=== PATIENT | female | born 1970 | race Caucasian/White ===

== ENCOUNTER → 2018-04-24 08:12 | Outpatient (CLI) | payer OTHER, MEDICAID, SELFPAY ==
--- NOTE | 2018-04-24 | DI.MG.S_ITS ---
BILATERAL DIGITAL SCREENING MAMMOGRAM 3D/2D WITH CAD: 04/24/2018 CLINICAL: Routine screening. Family history of breast cancer. Comparison is made to exams dated: 03/11/2017 mammogram, 03/05/2016 mammogram, and 01/24/2015 mammogram - [facility]. The tissue of both breasts is extremely dense, which lowers the sensitivity of mammography. Current study was also evaluated with a Computer Aided Detection (CAD) system. No significant masses, calcifications, or other findings are seen in either breast. There has been no significant interval change. IMPRESSION: NEGATIVE There is no mammographic evidence of malignancy. A 1 year screening mammogram is recommended. This exam was interpreted at Station ID: [id number]. NOTE: For mammograms, a report in lay terms will be sent to the patient. Approximately 15% of breast malignancies will not be visualized mammographically. In the management of a palpable breast mass, a negative mammogram must not discourage biopsy of a clinically suspicious lesion. Electronically Signed By: aTnvi prather/sandhya:04/24/2018 14:56:51 letter sent: Normal Exam ACR BI-RADS Category 1: Negative [id number]
== END ==
PROVIDERS: PCP Family Medicine; Visit Provider Family Medicine
DX: Z12.31 Encounter for screening mammogram for malignant neoplasm of breast (principal); Z80.3 Family history of malignant neoplasm of breast
CPT/HCPCS: 77063; 77067

== ENCOUNTER → 2018-08-30 18:14 | Outpatient (CLI) | payer OTHER, MEDICAID, SELFPAY ==
--- NOTE | 2018-08-30 18:16 | DI.RAD.S_ITS ---
PROCEDURE: XR SACRUM COCCYX MIN 2V INDICATIONS: SI joint pain TECHNIQUE: 3 views of the sacrum and coccyx acquired. COMPARISON: None. FINDINGS: Bones: No fractures or dislocations. No suspicious bony lesions. Unremarkable SI joints. Soft tissues: Visualized bowel gas pattern is normal. No suspicious soft tissue densities. IMPRESSION: No acute bony abnormality of the sacrum and coccyx. Unremarkable SI joints. Dictated by: Balbir Ojeda M.D. on 08/30/2018 at 18:49 Approved by: Balbir Ojeda M.D. on 08/30/2018 at 18:50
--- NOTE | 2018-08-30 18:16 | DI.RAD.S_ITS ---
PROCEDURE: XR HIP W PEL IF DONE LT MIN 4V INDICATIONS: SI joint pain TECHNIQUE: AP pelvis with lateral view(s) of the bilateral hip(s). COMPARISON: None. FINDINGS: Bones: No fractures or dislocations. Pelvic ring appears intact. No suspicious bony lesions. SI joints are unremarkable. Soft tissues: The visualized bowel gas pattern is normal. No suspicious soft tissue calcifications. IMPRESSION: Unremarkable pelvis and bilateral hips. Dictated by: Balbir Ojeda M.D. on 08/30/2018 at 18:42 Approved by: Balbir Ojeda M.D. on 08/30/2018 at 18:43
== END ==
PROVIDERS: PCP Family Medicine; Visit Provider Physician Assistant
DX: M53.3 Sacrococcygeal disorders, not elsewhere classified (principal)
CPT/HCPCS: 72220; 73522

== ENCOUNTER 2018-09-29 13:45 | Outpatient (RCR) | payer OTHER, MEDICAID, SELFPAY ==
--- NOTE | 2018-09-21 17:30 | PT.OIE ---
Current Diagnoses Sciatica, left side (09/20/18) Provider Visit Care Team Role Provider Type Rosaline Lewis MD Primary Care Provider Non-Staff Specialty: Medical Address: [address] [place] [address], [id number] Email: Elyssa Monte PA-C Attending Provider [employer] Mechanic Specialty: Medical Address: [address] [place] [address], [id number] Email: Physical Therapy Initial Evaluation PT-OP-A Visit Information Start: 09/20/18 11:37 Freq: Status: Active Protocol: Document 09/20/18 11:30 [facility] (Rec: 09/21/18 11:07 [facility] [email or web address]) Out-Patient Physical Therapy Visit Information Visit Information Visit Type Initial Evaluation Visit Note 48 year old female with c/o left sided sciatica symptoms and left SI pain, she is also c/o right sided knee weakness that began after the left SI symptoms Visit Start Time 11:30 Visit Stop Time 12:15 Total Visit Minutes 45 Visit Number 1 Evaluation Information Evaluation Date 09/20/18 PT-OP-B Current Condition Start: 09/20/18 11:37 Freq: Status: Active Protocol: Document 09/20/18 11:37 [facility] (Rec: 09/20/18 11:45 [facility] [id number]) Current Condition History of Current Condition Onset Date 2013 History of Current Condition 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 Pain after sitting or driving and a hour after yoga. By the afternoon it is really hurting . Sitting is better with knee out. Pain on the left referred into the gluteal region and at times down the back of the left leg. Also c /o right knee pain PT-OP-F Manual Assessment Start: 09/21/18 10:34 Freq: Status: Active Protocol: Document 09/20/18 11:30 [facility] (Rec: 09/21/18 11:07 [facility] [email or web address]) Manual Assessments Soft Tissue Assessment Soft Tissue Mobility Assessment right piriformis tightness Joint Mobility Assessment Joint Mobility Assessment Decreased right hip ER, + june test right leg longer in supine Right PSIS is higher than left Other Manual Assessments Other Manual Assessments + ASLR left inflare of the right illium PT-OP-J Posture/Palpation/Skin Start: 09/21/18 17:29 Freq: Status: Active Protocol: Document 09/20/18 17:29 [facility] (Rec: 09/21/18 17:30 [facility] [email or web address]) Palpation Assessment Location One Palpation Location pain left PSIS Palpation Findings Tenderness Palpation Details pain rated 6/10 PT-OP-K Range of Motion Start: 09/21/18 10:34 Freq: Status: Active Protocol: Document 09/20/18 11:30 [facility] (Rec: 09/21/18 11:07 [facility] [email or web address]) Lumbar Spine Range of Motion Lumbar Spine Active Testing Position Standing ROM Limitations Pain Comments Flexion is full but causes pain on the left SI joint, pt tends to keep her spine extended in the lower lumbar region at the L4-5, L5-SI region Hip Goniometric Range of Motion Hip Measured in Degrees Left External Rotation 40 Right External Rotation 20 Hip ROM Limitations Hip ROM Limitations Soft Tissue Tightness Bony Restriction Comments The right hip is restriced with hip ER and Serene tends to rock her pelvis to get the rest of her range of motion. Left is within normal limits PT-OP-Q Treatments Start: 09/21/18 10:34 Freq: Status: Active Protocol: Document 09/20/18 11:30 [facility] (Rec: 09/21/18 11:07 [facility] [email or web address]) Therapeutic Exercises Supine Exercises 1 Supine Exercise Name isometric ball squeeze Side bilateral Reps/Minutes 10 reps Prone Exercises 1 Prone Exercise Name prone hip ER without pelvic movement Side bilateral Reps/Minutes x 10 reps Comments focus on improving hip mobility on the right into hip ER Manual Therapy Treatment Soft Tissue Mobilization 1 Body Location right pirformis Mobilization Type Myofascial Release Intensity/Depth Moderate Body Position Prone Manual Techniques 2 Type right LE distraction Body Position Supine 1 Type MET right anteriorly rotation ilium and right inflare Body Position Supine Reps/Duration 5 reps x 5 seconds each MET PT-OP-T Assessment and Plan Start: 09/21/18 10:34 Freq: Status: Active Protocol: Document 09/20/18 11:30 [facility] (Rec: 09/21/18 11:07 [facility] [email or web address]) Physical Therapy Assessment Rehab Potential Rehabilitation Potential Excellent Evaluation Complexity Number of Personal Factors/Comorbidities 0 Number of Body Systems Impaired 1-2 Clinical Presentation at Evaluation Stable Impairments Impairments Functional Activities Pain ROM Soft Tissue Mobility Tone Goals Four Impairment right PSIS higher than left, right innominant inflare and anterior rotation Short Term Goal (STG) Correct SI dysfunction to normalize movement patterns and decrease symptoms of SI joint pain on the left STG Duration 4 -6 weeks Three Impairment Left SI joint pain with forward bend/lumbar flexion Amortization Schedule Clerk Goal (LTG) Serene is able to perform her forward bend without pain into the left SI joint and she is able to move through the L4-S1 segments without flattening her lumbar spine LTG Duration 6-8 weeks Two Impairment Decreased R hip ER as compared to the L Short Term Goal (STG) Improve hip ROM on the right so that Serene is not straining through the left SI joint as she attempts to rotate her right leg out STG Duration 4 weeks Custodial Goal (LTG) Serene is able to do standing tree pose without straining into the left SI joint LTG Duration 6-8 weeks One Impairment left SI pain rated 4-6/10 Short Term Goal (STG) Serene reports decreased c/o pain in the left SI joint and is no longer experiencing the sciatic symptoms down her posterior gluteal region at rest STG Duration 4 weeks Amortization Schedule Clerk Goal (LTG) Serene is able to continue her yoga and walking without pain following these activities Assessment Summary Assessment Serene presents to physical therapy today with symptoms of Left SI joint pain and sciatica to the posterior gluteal region and thigh. She also has a new onset of right sided knee weakness. 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 With examination today the Right PSIS is higher than the left, right leg is slightly longer in supine, the right piriformis is tight and guarded and Serene lacks her full hip ROM on the right. With yoga poses such as tree pose she is compensating with straining into the left SI joint for the lack of hip ER she has. She also has pain with forward bend and tends to hold her low back in extension hinging on the lower spine as she bends forward. Treatment today began with deep tissue and MFR over the fight piriformis and manual techniques to decrease innominant inflare on the right and anterior rotation. Treatment will focus on bodymechanic training in yoga poses, manual therapy techniques, and stabilization exercises for the pelvic girdle and SI joint. Physical Therapy Plan Frequency and Duration Frequency of Treatment 2x/Week Duration of Treatment 8 weeks Plan of Care Start Date 09/20/18 Plan of Care End Date 11/15/18 Therapeutic Interventions Therapeutic Interventions Home Exercise Program Joint Mobilizations Manual Therapy Neuromuscular Re-education Patient/Caregiver Education Self-Care/Home Management Soft Tissue Mobilization Therapeutic Exercises Modalities Ultrasound Next Visit Focus/Plan Next Note Type Treatment Note Next Visit Plan Recheck SI alignment next visit, work on improved hip ER on the right, stabilization exercises for the pelvic floor
--- NOTE | 2018-09-21 17:31 | PT.OPPOC ---
Current Diagnoses Sciatica, left side (09/20/18) Provider Visit Care Team Role Provider Type Rosaline Lewis MD Primary Care Provider Non-Staff Specialty: Medical Address: [address] [place] [address], [id number] Email: Elyssa Monte PA-C Attending Provider [employer] Representative Specialty: Medical Address: [address] [place] [address], [id number] Email: Plan Of Care PT-OP-T Assessment and Plan Start: 09/21/18 10:34 Freq: Status: Active Protocol: Document 09/20/18 11:30 [facility] (Rec: 09/21/18 11:07 [facility] [email or web address]) Physical Therapy Assessment Rehab Potential Rehabilitation Potential Excellent Evaluation Complexity Number of Personal Factors/Comorbidities 0 Number of Body Systems Impaired 1-2 Clinical Presentation at Evaluation Stable Impairments Impairments Functional Activities Pain ROM Soft Tissue Mobility Tone Goals Four Impairment right PSIS higher than left, right innominant inflare and anterior rotation Short Term Goal (STG) Correct SI dysfunction to normalize movement patterns and decrease symptoms of SI joint pain on the left STG Duration 4 -6 weeks Three Impairment Left SI joint pain with forward bend/lumbar flexion Detention Goal (LTG) Serene is able to perform her forward bend without pain into the left SI joint and she is able to move through the L4-S1 segments without flattening her lumbar spine LTG Duration 6-8 weeks Two Impairment Decreased R hip ER as compared to the L Short Term Goal (STG) Improve hip ROM on the right so that Serene is not straining through the left SI joint as she attempts to rotate her right leg out STG Duration 4 weeks Costume Designer Goal (LTG) Serene is able to do standing tree pose without straining into the left SI joint LTG Duration 6-8 weeks One Impairment left SI pain rated 4-6/10 Short Term Goal (STG) Serene reports decreased c/o pain in the left SI joint and is no longer experiencing the sciatic symptoms down her posterior gluteal region at rest STG Duration 4 weeks Costume Designer Goal (LTG) Serene is able to continue her yoga and walking without pain following these activities Assessment Summary Assessment Serene presents to physical therapy today with symptoms of Left SI joint pain and sciatica to the posterior gluteal region and thigh. She also has a new onset of right sided knee weakness. 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 With examination today the Right PSIS is higher than the left, right leg is slightly longer in supine, the right piriformis is tight and guarded and Serene lacks her full hip ROM on the right. With yoga poses such as tree pose she is compensating with straining into the left SI joint for the lack of hip ER she has. She also has pain with forward bend and tends to hold her low back in extension hinging on the lower spine as she bends forward. Treatment today began with deep tissue and MFR over the fight piriformis and manual techniques to decrease innominant inflare on the right and anterior rotation. Treatment will focus on body mechanics training in yoga poses, manual therapy techniques, and stabilization exercises for the pelvic girdle and SI joint. Physical Therapy Plan Frequency and Duration Frequency of Treatment 2x/Week Duration of Treatment 8 weeks Plan of Care Start Date 09/20/18 Plan of Care End Date 11/15/18 Therapeutic Interventions Therapeutic Interventions Home Exercise Program Joint Mobilizations Manual Therapy Neuromuscular Re-education Patient/Caregiver Education Self-Care/Home Management Soft Tissue Mobilization Therapeutic Exercises Modalities Ultrasound Next Visit Focus/Plan Next Note Type Treatment Note Next Visit Plan Recheck SI alignment next visit, work on improved hip ER on the right, stabilization exercises for the pelvic floor Plan of Care Dates Plan of Care Start Date 09/20/18 Plan of Care End Date 11/15/18 Please Sign and Return: I have reviewed this Plan of Care and certify that the skilled therapy services above are required to meet the patient?s needs. Physician Signature Date Printed Name and Credentials Clinical Instructor Signature Printed Name and Credentials
--- NOTE | 2018-09-29 15:05 | PT.OTN ---
Current Diagnoses Sciatica, left side (09/29/18) Physical Therapy Treatment Note PT-OP-A Visit Information Start: 09/20/18 11:37 Freq: Status: Active Protocol: Document 09/29/18 13:45 [facility] (Rec: 09/29/18 15:05 [email or web address]) Out-Patient Physical Therapy Visit Information Visit Information Visit Type Treatment Note Visit Start Time 13:45 Visit Stop Time 14:30 Total Visit Minutes 45 Visit Number 2 PT-OP-B Current Condition Start: 09/20/18 11:37 Freq: Status: Active Protocol: Document 09/20/18 11:37 [facility] (Rec: 09/20/18 11:45 [facility] [id number]) Current Condition History of Current Condition Onset Date 2013 History of Current Condition 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 Pain after sitting or driving and a hour after yoga. By the afternoon it is really hurting . Sitting is better with knee out. Pain on the left referred into the gluteal region and at times downt he back of the left leg. Also c /o right knee pain PT-OP-C Subjective Start: 09/21/18 10:34 Freq: Status: Active Protocol: Document 09/29/18 13:45 [facility] (Rec: 09/29/18 15:05 [email or web address]) OP-PT Subjective Patient Comments Patient Comments My left hip has been feeling better, but driving still aggravates it somehow. I have been doing my home exercises.' Patient Reported Progress Improving PT-OP-F Manual Assessment Start: 09/21/18 10:34 Freq: Status: Active Protocol: Document 09/20/18 11:30 [facility] (Rec: 09/21/18 11:07 [facility] [email or web address]) Manual Assessments Soft Tissue Assessment Soft Tissue Mobility Assessment right piriformis tightness Joint Mobility Assessment Joint Mobility Assessment Decreased right hip ER, + june test right leg longer in supine Right PSIS is higher than left Other Manual Assessments Other Manual Assessments + ASLR left inflare of the right illium PT-OP-J Posture/Palpation/Skin Start: 09/21/18 17:29 Freq: Status: Active Protocol: Document 09/20/18 17:29 [facility] (Rec: 09/21/18 17:30 [facility] [email or web address]) Palpation Assessment Location One Palpation Location pain left PSIS Palpation Findings Tenderness Palpation Details pain rated 6/10 PT-OP-K Range of Motion Start: 09/21/18 10:34 Freq: Status: Active Protocol: Document 09/20/18 11:30 [facility] (Rec: 09/21/18 11:07 [facility] [email or web address]) Lumbar Spine Range of Motion Lumbar Spine Active Testing Position Standing ROM Limitations Pain Comments Flexion is full but causes pain on the left SI joint, pt tends to keep her spine extended in the lower lumbar region at the L4-5, L5-SI region Hip Goniometric Range of Motion Hip Measured in Degrees Left External Rotation 40 Right External Rotation 20 Hip ROM Limitations Hip ROM Limitations Soft Tissue Tightness Bony Restriction Comments The right hip is restriced with hip ER and Serene tends to rock her pelvis to get the rest of her range of motion. Left is within normal limits PT-OP-Q Treatments Start: 09/21/18 10:34 Freq: Status: Active Protocol: Document 09/29/18 13:45 [facility] (Rec: 09/29/18 15:05 [facility] [email or web address]) Therapeutic Exercises Supine Exercises resisted L hip ER Side left Resistance PT's resistance Reps/Minutes 10 secs hold x5 single leg bridge Side bilateral Reps/Minutes 5 secs hold at top x 5 x2 Comments cues for neutral spine and gluteal engagement bridging Supine Exercise Name bridging Side bilateral Reps/Minutes 5 secs hold at top x 8 x2 Comments cues for neutral spine and gluteal engagement 1 Supine Exercise Name isometric ball squeeze Side bilateral Reps/Minutes 10 reps x 5 secs hold Standing Exercises single leg hip hinge Standing Exercise Name walking hip hinge Side bilateral Reps/Minutes 10 reps x 2 Comments stagger stance with neutral spine jeffferson curl Side bilateral Equipment Used 10lbs weighted ball Reps/Minutes 5 reps x 2 Comments cues for segmental control Other Exercises cat camel Other Exercise Name cat camel without hip movement Equipment Used yoga mat Reps/Minutes 10 reps Comments tapping to cue segmental control Manual Therapy Treatment Soft Tissue Mobilization R glute max & medius Mobilization Type Myofascial Release Intensity/Depth Moderate Body Position Prone 1 Body Location right pirformis Mobilization Type Myofascial Release Intensity/Depth Moderate Body Position Prone Manual Techniques 2 Type right LE distraction Body Position Supine PT-OP-T Assessment and Plan Start: 09/21/18 10:34 Freq: Status: Active Protocol: Document 09/29/18 13:45 (Rec: 09/29/18 15:05 [email or web address]) Physical Therapy Assessment Goals Four Impairment right PSIS higher than left, right innominant inflare and anterior rotation Short Term Goal (STG) Correct SI dysfunction to normalize movement patterns and decrease symptoms of SI joint pain on the left STG Duration 4 -6 weeks Three Impairment Left SI joint pain with forward bend/lumbar flexion Usp Goal (LTG) Serene is able to perform her forward bend without pain into the left SI joint and she is able to move through the L4-S1 segments without flattening her lumbar spine LTG Duration 6-8 weeks Two Impairment Decreased R hip ER as compared to the L Short Term Goal (STG) Improve hip ROM on the right so that Serene is not straining through the left SI joint as she attempts to rotate her right leg out STG Duration 4 weeks Usp Goal (LTG) Serene is able to do standing tree pose without straining into the left SI joint LTG Duration 6-8 weeks One Impairment left SI pain rated 4-6/10 Short Term Goal (STG) Serene reports decreased c/o pain in the left SI joint and is no longer experiencing the sciatic symptoms down her posterior gluteal region at rest STG Duration 4 weeks Director Of Business Systems Goal (LTG) Jonny is able to continue her yoga and walking without pain following these activities Assessment Summary Assessment Pt presents improved symptoms today with reduced pain at L SI during forward bending and warrior pose. She also presents improved SI alignment and LLD. Tx focused on lumbar segmental control during forward bending with corey curl exercise, stagger stance hip hinge, manual therapy on R piriformis. Pt ruddy tx very well. Physical Therapy Plan Next Visit Focus/Plan Next Note Type Treatment Note Next Visit Plan Recheck SI alignment next visit, check segmental control check hamstring, gluteal strength work on improved hip ER on the right, stabilization exercises for the pelvic floor
--- NOTE | 2019-02-13 11:58 | PT.OPDS ---
Current Diagnoses Sciatica, left side (09/29/18) Visit Care Team Role Provider Type Rosaline Lewis MD Primary Care Provider Non-Staff Specialty: Medical Address: [address] [place] [address], [id number] Email: Elyssa Monte PA-C Attending Provider Advanced Rolling Chair Pusher Specialty: Medical Address: [address] [place] [address], [id number] Email: [email or web address] Visit Number Visit Number 2 Discharge Summary PT-OP-B Current Condition Start: 09/20/18 11:37 Freq: Status: Active Protocol: Document 09/20/18 11:37 [facility] (Rec: 09/20/18 11:45 [facility] [id number] Current Condition History of Current Condition Onset Date 2013 History of Current Condition 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 Pain after sitting or driving and a hour after yoga. By the afternoon it is really hurting . Sitting is better with knee out. Pain on the left referred into the gluteal region and at times downt he back of the left leg. Also c /o right knee pain PT-OP-C Subjective Start: 09/21/18 10:34 Freq: Status: Active Protocol: Document 09/29/18 13:45 HH (Rec: 09/29/18 15:05 HH [email or web address]) OP-PT Subjective Patient Comments Patient Comments My left hip has been feeling better, but driving still aggravates it somehow. I have been doing my home exercises.' Patient Reported Progress Improving PT-OP-F Manual Assessment Start: 09/21/18 10:34 Freq: Status: Active Protocol: Document 09/20/18 11:30 [facility] (Rec: 09/21/18 11:07 [facility] [email or web address]) Manual Assessments Soft Tissue Assessment Soft Tissue Mobility Assessment right piriformis tightness Joint Mobility Assessment Joint Mobility Assessment Decreased right hip ER, + june test right leg longer in supine Right PSIS is higher than left Other Manual Assessments Other Manual Assessments + ASLR left inflare of the right illium PT-OP-J Posture/Palpation/Skin Start: 09/21/18 17:29 Freq: Status: Active Protocol: Document 09/20/18 17:29 [facility] (Rec: 09/21/18 17:30 AMH [email or web address]) Palpation Assessment Location One Palpation Location pain left PSIS Palpation Findings Tenderness Palpation Details pain rated 6/10 PT-OP-K Range of Motion Start: 09/21/18 10:34 Freq: Status: Active Protocol: Document 09/20/18 11:30 [facility] (Rec: 09/21/18 11:07 AM[facility] [email or web address]) Lumbar Spine Range of Motion Lumbar Spine Active Testing Position Standing ROM Limitations Pain Comments Flexion is full but causes pain on the left SI joint, pt tends to keep her spine extended in the lower lumbar region at the L4-5, L5-SI region Hip Goniometric Range of Motion Hip Left External Rotation 40 Right External Rotation 20 Hip ROM Limitations Hip ROM Limitations Soft Tissue Tightness,Bony Restriction Comments The right hip is restriced with hip ER and Serene tends to rock her pelvis to get the rest of her range of motion. Left is within normal limits PT-OP-T Assessment and Plan Start: 09/21/18 10:34 Freq: Status: Active Protocol: Document 02/13/19 11:56 (Rec: 02/13/19 11:57 [email or web address]) Physical Therapy Assessment Assessment Summary Assessment Call Pt via phone but she is not available. She is not longer attending PT. D/C from PT
== END 2019-02-21 16:30 | disposition home or self-care (01) ==
LOC: PHYS 13:45
PROVIDERS: PCP Family Medicine; Visit Provider Physician Assistant
DX: M54.32 Sciatica, left side (principal)
CPT/HCPCS: 97110; 97140; 97161

== ENCOUNTER 2018-10-28 13:35 | Emergency (ER) | payer OTHER, MEDICAID, SELFPAY ==
[2018-10-28 13:38] VITALS: BP 149/89; PULSE 103; RESP 18; TEMP 36.6; O2SAT 98; BMI 21.6
[2018-10-28 14:33] LABS: Add Manual Diff / Slide Review NO; Basophils Absolute Auto 0 /uL (0-100); Basophils Percent Auto 0.8 % (0-2); Eosinophils Absolute Auto 100 /uL (0-450); Hematocrit 39.8 % (36-46); Hemoglobin 13.3 g/dL (12.0-16.0); Lymphocytes Absolute Auto 2100 /uL (1100-4500); Lymphocytes Percent Auto 33.9 % (25-40); Mean Corpuscular HGB Conc 33.4 % (30-36); Mean Corpuscular Hemoglobin 29.7 PG (26-34); Monocytes Absolute Auto 300 /uL (0-900); Monocytes Percent Auto 4.5 % (3-14); Neutrophils Absolute Auto 3600 /uL (1500-7000); Neutrophils Percent Auto 58.8 % (50-75); Platelet Count 311 X10^3/uL (150-400); Red Blood Cell Count 4.48 X10^6/uL (4.0-5.2); Red Cell Distribution Width 14.2 % (11.6-14.8); White Blood Cell Count 6.1 X10^3/uL (4.5-11.0)
--- NOTE | 2018-10-28 14:40 | ED_ITS ---
HPI - Alcohol <NATHAN Moreno - Last Filed: 10/28/18 16:39> General Chief Complaint: Toxicology Problem Stated Complaint: Detox Time Seen by Provider: 10/28/18 14:20 Source: patient Mode of arrival: ambulatory Limitations: no limitations History of Present Illness HPI narrative: The patient is a 48-year-old female nonsmoker with history of alcoholism who presents requesting medications for detox. She states that she has been ?on a binge for the past 5 days. She states she has been drinking at least a 5th of hard alcohol a day, but she is not sure. She has been in and out of recovery for the past several years, with history of alcoholism. She denies any other substance abuse. She denies any history of seizures. She denies any current thoughts of hurting herself or anybody else. She denies any fevers abdominal pain nausea or vomiting. She denies any current tremors. Her last drink was today at noon and states she had about a 5th to drink today. Related Data Home Medications Medication Instructions Recorded Confirmed biotin 2,500 mcg PO #0 05/24/16 08/30/18 vitamin B complex [B 1 tab PO QDAY #0 05/24/16 08/30/18 Complex-Vitamin B12] zinc gluconate 100 mg PO #0 05/24/16 08/30/18 ginkgo biloba 120 mg PO #0 01/17/17 08/30/18 Previous Rx's Medication Instructions Recorded chlordiazepoxide HCl See Rx Instructions .ROUTE 10/28/18 .COMPLEX PRN #32 cap ondansetron 4 mg PO Q8H PRN #30 tab 10/28/18 Allergies Allergy/AdvReac Type Severity Reaction Status Date / Time No Known Drug Allergies Allergy Verified 08/30/18 19:03 Review of Systems <NATHAN Moreno - Last Filed: 10/28/18 16:39> Review of Systems GENERAL: Denies chills, fatigue, malaise, fever, sweats. HEENT: Denies sinus pain, ear pain, sore throat, difficulty swallowing, dizziness. RESPIRATORY: Denies dyspnea, cough, wheezing, hemoptysis, sputum. CARDIOVASCULAR: Denies chest pain, palpitations, orthopnea, edema, GASTROINTESTINAL: Denies nausea, vomiting, abdominal pain, diarrhea, constipation, melena. : Denies dysuria, frequency, incontinence, hematuria, urinary retention. MUSCULOSKELETAL: denies weakness, joint pain, or bony pain SKIN: Denies rash, skin lesions, or other NEUROLOGIC: Denies weakness, headache, numbness, change in speech, confusion, seizures, incoordination. PSYCHIATRIC: See HPI 12 point review of systems is negative except for those stated above PFSH <NATHAN Moreno - Last Filed: 10/28/18 16:39> Social History Smoking Status: Never smoker Social History Smoking Status: Never smoker Exam <NATHAN Moreno - Last Filed: 10/28/18 16:39> Narrative Exam Narrative: GENERAL: Thin female sitting on stretcher in no acute distress HEAD: Atraumatic. Normocephalic. No temporal or scalp tenderness. EYES: Pupils equal round and reactive. Extraocular motions intact. No scleral icterus. No injection or drainage. ENT: Nose without bleeding, purulent drainage or septal hematoma. Throat without erythema, tonsillar hypertrophy or exudate. Uvula midline. Airway patent. NECK: Trachea midline. No JVD or lymphadenopathy. Supple, nontender, no meningeal signs. CARDIOVASCULAR: Regular rate and rhythm without murmurs, gallops, or rubs. RESPIRATORY: Clear to auscultation. Breath sounds equal bilaterally. No wheezes, rales, or rhonchi. No cough. No increased respiratory effort. No accessory muscle use. GASTROINTESTINAL: Abdomen soft, non-tender, nondistended. No hepato- splenomegaly, or palpable masses. No guarding. EXTREMITIES: No clubbing, cyanosis, or edema. No joint tenderness, effusion, or edema noted. BACK: Nontender without deformity or crepitance. No flank tenderness. NEURO: AOx3. Stable gait. No tremor noted. SKIN: No rash or erythema. Initial Vital Signs Initial Vital Signs: Vital Signs Temperature 97.8 F 10/28/18 13:38 Pulse Rate 103 H 10/28/18 13:38 Respiratory Rate 18 10/28/18 13:38 Blood Pressure 149/89 H 10/28/18 13:38 Pulse Oximetry 98 07/06/19 13:38 <Anna Rivera DO - Last Filed: 10/28/18 18:54> Initial Vital Signs Initial Vital Signs: Vital Signs Temperature 97.8 F 10/28/18 13:38 Pulse Rate 103 H 10/28/18 13:38 Respiratory Rate 18 10/28/18 13:38 Blood Pressure 149/89 H 10/28/18 13:38 Pulse Oximetry 98 10/28/18 13:38 Course <NATHAN Moreno - Last Filed: 10/28/18 16:39> Orders Ordered: ED Orders 10/28/18 14:10 Urine Drug Screen, Rapid Stat 10/28/18 14:20 Acetaminophen Stat Complete Blood Count AUTO DIFF Stat Comprehensive Metabolic Panel Stat Ethanol (ETOH) Stat Salicylate Stat Thyroid Stimulating Hormone Stat Discontinued Medications Lorazepam (Ativan) 1 mg PO NOW ONE Stop: 10/28/18 15:30 Last Admin: 10/28/18 15:56 Dose: 1 mg Ondansetron HCl (Zofran Odt) 4 mg SL NOW ONE Stop: 10/28/18 15:30 Last Admin: 10/28/18 15:56 Dose: 4 mg Vital Signs - 8 hr 10/28/18 13:38 10/28/18 16:49 Temperature 97.8 F Pulse Rate 103 H 94 H Respiratory Rate 18 18 Blood Pressure 149/89 H 132/84 Pulse Oximetry 98 96 <Anna Rivera DO - Last Filed: 10/28/18 18:54> Orders Ordered: ED Orders 10/28/18 14:10 Urine Drug Screen, Rapid Stat 10/28/18 14:20 Acetaminophen Stat Complete Blood Count AUTO DIFF Stat Comprehensive Metabolic Panel Stat Ethanol (ETOH) Stat Salicylate Stat Thyroid Stimulating Hormone Stat Discontinued Medications Lorazepam (Ativan) 1 mg PO NOW ONE Stop: 10/28/18 15:30 Last Admin: 10/28/18 15:56 Dose: 1 mg Ondansetron HCl (Zofran Odt) 4 mg SL NOW ONE Stop: 10/28/18 15:30 Last Admin: 10/28/18 15:56 Dose: 4 mg Vital Signs - 8 hr 10/28/18 13:38 10/28/18 16:49 Temperature 97.8 F Pulse Rate 103 H 94 H Respiratory Rate 18 18 Blood Pressure 149/89 H 132/84 Pulse Oximetry 98 96 MDM - Alcohol <Ashley Campoverde, [employer] - Last Filed: 10/28/18 16:39> Lab Data Result diagrams: 10/28/18 14:20 10/28/18 14:20 Labs: Lab Results 10/28/18 10/28/18 10/28/18 Range/Units 14:10 14:20 14:20 WBC 6.1 (4.5-11.0) X10^3/uL RBC 4.48 (4.0-5.2) X10^6/uL Hgb 13.3 (12.0-16.0) g/dL Hct 39.8 (36-46) % MCV 89.0 (80-100) fL MCH 29.7 (26-34) PG MCHC 33.4 (30-36) % RDW 14.2 (11.6-14.8) % Plt Count 311 (150-400) X10^3/uL Neut % (Auto) 58.8 (50-75) % Lymph % (Auto) 33.9 (25-40) % [place] % (Auto) 4.5 (3-14) % Eos % (Auto) 2.0 (2-4) % Baso % (Auto) 0.8 (0-2) % Neut # (Auto) 3600 (3075-0592) /uL Lymph # (Auto) 2100 (6991-4090) /uL [place] # (Auto) 300 (0-900) /uL Eos # (Auto) 100 (0-450) /uL Baso # (Auto) 0 (0-100) /uL Sodium 139 (137-145) mmol/L Potassium 4.4 (3.4-5.1) mmol/L Chloride 99 (98-107) mmol/L Carbon Dioxide 26 (22-32) mmol/L BUN 9 (7-17) mg/dL Creatinine 0.60 (0.52-1.04) mg/dL Estimated GFR > 60.0 (>60) mL/min BUN/Creatinine Ratio 15.0 (6-22) Glucose 90 (70-100) mg/dL Calcium 9.3 (8.4-10.2) mg/dL Total Bilirubin 0.5 (0.2-1.3) mg/dL AST 59 H (14-36) IU/L ALT 32 (9-52) IU/L Alkaline Phosphatase 63 (38-126) U/L Total Protein 7.9 (6.3-8.2) g/dL Albumin 4.8 (3.5-5.0) g/dL Globulin 3.1 (1.7-4.1) g/dL Albumin/Globulin Ratio 1.5 (1.0-2.8) TSH (0.47-4.68) uIU/mL Salicylates < 1.0 (<20) mg/dL Urine Opiates Screen Negative (Negative) Ur Oxycodone Screen Negative (Negative) Urine Methadone Screen Negative (Negative) Acetaminophen < 10 L (10-30) ug/mL Ur Barbiturates Screen Negative (Negative) U Tricyclic Antidepress Negative (Negative) Ur Phencyclidine Scrn Negative (Negative) Ur Amphetamines Screen Negative (Negative) U Methamphetamines Scrn Negative (Negative) Ur MDMA Scrn (Ecstasy) Negative (Negative) U Benzodiazepines Scrn Negative (Negative) Urine Cocaine Screen Negative (Negative) U Marijuana (THC) Screen Negative (Negative) Ethyl Alcohol 253 mg/dL 10/28/18 Range/Units 14:20 WBC (4.5-11.0) X10^3/uL RBC (4.0-5.2) X10^6/uL Hgb (12.0-16.0) g/dL Hct (36-46) % MCV (80-100) fL MCH (26-34) PG MCHC (30-36) % RDW (11.6-14.8) % Plt Count (150-400) X10^3/uL Neut % (Auto) (50-75) % Lymph % (Auto) (25-40) % [place] % (Auto) (3-14) % Eos % (Auto) (2-4) % Baso % (Auto) (0-2) % Neut # (Auto) (3047-0648) /uL Lymph # (Auto) (3627-9226) /uL [place] # (Auto) (0-900) /uL Eos # (Auto) (0-450) /uL Baso # (Auto) (0-100) /uL Sodium (137-145) mmol/L Potassium (3.4-5.1) mmol/L Chloride (98-107) mmol/L Carbon Dioxide (22-32) mmol/L BUN (7-17) mg/dL Creatinine (0.52-1.04) mg/dL Estimated GFR (>60) mL/min BUN/Creatinine Ratio (6-22) Glucose (70-100) mg/dL Calcium (8.4-10.2) mg/dL Total Bilirubin (0.2-1.3) mg/dL AST (14-36) IU/L ALT (9-52) IU/L Alkaline Phosphatase (38-126) U/L Total Protein (6.3-8.2) g/dL Albumin (3.5-5.0) g/dL Globulin (1.7-4.1) g/dL Albumin/Globulin Ratio (1.0-2.8) TSH 0.99 (0.47-4.68) uIU/mL Salicylates (<20) mg/dL Urine Opiates Screen (Negative) Ur Oxycodone Screen (Negative) Urine Methadone Screen (Negative) Acetaminophen (10-30) ug/mL Ur Barbiturates Screen (Negative) U Tricyclic Antidepress (Negative) Ur Phencyclidine Scrn (Negative) Ur Amphetamines Screen (Negative) U Methamphetamines Scrn (Negative) Ur MDMA Scrn (Ecstasy) (Negative) U Benzodiazepines Scrn (Negative) Urine Cocaine Screen (Negative) U Marijuana (THC) Screen (Negative) Ethyl Alcohol mg/dL Point of Care Testing Test Results Negative Urine Dip Bedside Urine Glucose Negative Bedside Urine Bilirubin - Negative Bedside Urine Ketone - Negative Urine Specific [place] 1.015 Bedside Urine Occult Blood - Negative Bedside Urine pH 6.0 Bedside Urine Protein + 30 Bedside Urine Urobilinogen +/- 1mg Bedside Urine Nitrite - Negative Bedside Urine Leukocytes - Negative Esterase MDM Narrative Medical decision making narrative: The patient is a 48-year-old female who presents requesting medications for alcohol detox. She has detoxified from alcohol at home several times. She is a L for AA and has good support systems, including her mother is present. She denies any suicidal thoughts or ideations, homicidal thoughts or homicidal ideations. She plans on following up with primary care provider. She states she will come back to the ER if needed. She has no history of detox seizures. I discussed at length follow up with her primary care provider. She was given prescriptions of Librium as well as Zofran as needed. Mother states comfort with this process at her house, as she states she has worked with her daughter for this before. No questions or concerns upon discharge. She has been hemodynamically stable throughout her stay in the ER. <Anna Nicole, DO - Last Filed: 10/28/18 18:54> Lab Data Labs: Lab Results 10/28/18 10/28/18 10/28/18 Range/Units 14:10 14:20 14:20 WBC 6.1 (4.5-11.0) X10^3/uL RBC 4.48 (4.0-5.2) X10^6/uL Hgb 13.3 (12.0-16.0) g/dL Hct 39.8 (36-46) % MCV 89.0 (80-100) fL MCH 29.7 (26-34) PG MCHC 33.4 (30-36) % RDW 14.2 (11.6-14.8) % Plt Count 311 (150-400) X10^3/uL Neut % (Auto) 58.8 (50-75) % Lymph % (Auto) 33.9 (25-40) % [place] % (Auto) 4.5 (3-14) % Eos % (Auto) 2.0 (2-4) % Baso % (Auto) 0.8 (0-2) % Neut # (Auto) 3600 (4962-6465) /uL Lymph # (Auto) 2100 (9797-6324) /uL [place] # (Auto) 300 (0-900) /uL Eos # (Auto) 100 (0-450) /uL Baso # (Auto) 0 (0-100) /uL Sodium 139 (137-145) mmol/L Potassium 4.4 (3.4-5.1) mmol/L Chloride 99 (98-107) mmol/L Carbon Dioxide 26 (22-32) mmol/L BUN 9 (7-17) mg/dL Creatinine 0.60 (0.52-1.04) mg/dL Estimated GFR > 60.0 (>60) mL/min BUN/Creatinine Ratio 15.0 (6-22) Glucose 90 (70-100) mg/dL Calcium 9.3 (8.4-10.2) mg/dL Total Bilirubin 0.5 (0.2-1.3) mg/dL AST 59 H (14-36) IU/L ALT 32 (9-52) IU/L Alkaline Phosphatase 63 (38-126) U/L Total Protein 7.9 (6.3-8.2) g/dL Albumin 4.8 (3.5-5.0) g/dL Globulin 3.1 (1.7-4.1) g/dL Albumin/Globulin Ratio 1.5 (1.0-2.8) TSH (0.47-4.68) uIU/mL Salicylates < 1.0 (<20) mg/dL Urine Opiates Screen Negative (Negative) Ur Oxycodone Screen Negative (Negative) Urine Methadone Screen Negative (Negative) Acetaminophen < 10 L (10-30) ug/mL Ur Barbiturates Screen Negative (Negative) U Tricyclic Antidepress Negative (Negative) Ur Phencyclidine Scrn Negative (Negative) Ur Amphetamines Screen Negative (Negative) U Methamphetamines Scrn Negative (Negative) Ur MDMA Scrn (Ecstasy) Negative (Negative) U Benzodiazepines Scrn Negative (Negative) Urine Cocaine Screen Negative (Negative) U Marijuana (THC) Screen Negative (Negative) Ethyl Alcohol 253 mg/dL 10/28/18 Range/Units 14:20 WBC (4.5-11.0) X10^3/uL RBC (4.0-5.2) X10^6/uL Hgb (12.0-16.0) g/dL Hct (36-46) % MCV (80-100) fL MCH (26-34) PG MCHC (30-36) % RDW (11.6-14.8) % Plt Count (150-400) X10^3/uL Neut % (Auto) (50-75) % Lymph % (Auto) (25-40) % [place] % (Auto) (3-14) % Eos % (Auto) (2-4) % Baso % (Auto) (0-2) % Neut # (Auto) (1032-5956) /uL Lymph # (Auto) (2498-3882) /uL [place] # (Auto) (0-900) /uL Eos # (Auto) (0-450) /uL Baso # (Auto) (0-100) /uL Sodium (137-145) mmol/L Potassium (3.4-5.1) mmol/L Chloride (98-107) mmol/L Carbon Dioxide (22-32) mmol/L BUN (7-17) mg/dL Creatinine (0.52-1.04) mg/dL Estimated GFR (>60) mL/min BUN/Creatinine Ratio (6-22) Glucose (70-100) mg/dL Calcium (8.4-10.2) mg/dL Total Bilirubin (0.2-1.3) mg/dL AST (14-36) IU/L ALT (9-52) IU/L Alkaline Phosphatase (38-126) U/L Total Protein (6.3-8.2) g/dL Albumin (3.5-5.0) g/dL Globulin (1.7-4.1) g/dL Albumin/Globulin Ratio (1.0-2.8) TSH 0.99 (0.47-4.68) uIU/mL Salicylates (<20) mg/dL Urine Opiates Screen (Negative) Ur Oxycodone Screen (Negative) Urine Methadone Screen (Negative) Acetaminophen (10-30) ug/mL Ur Barbiturates Screen (Negative) U Tricyclic Antidepress (Negative) Ur Phencyclidine Scrn (Negative) Ur Amphetamines Screen (Negative) U Methamphetamines Scrn (Negative) Ur MDMA Scrn (Ecstasy) (Negative) U Benzodiazepines Scrn (Negative) Urine Cocaine Screen (Negative) U Marijuana (THC) Screen (Negative) Ethyl Alcohol mg/dL Point of Care Testing Test Results Negative Urine Dip Bedside Urine Glucose Negative Bedside Urine Bilirubin - Negative Bedside Urine Ketone - Negative Urine Specific [place] 1.015 Bedside Urine Occult Blood - Negative Bedside Urine pH 6.0 Bedside Urine Protein + 30 Bedside Urine Urobilinogen +/- 1mg Bedside Urine Nitrite - Negative Bedside Urine Leukocytes - Negative Esterase Discharge Plan Departure Patient Disposition: Home Clinical Impression: Alcohol abuse Discharge Date/Time: 10/28/18 16:50 Interventions: ED Discharge Assessment Last Done: 10/28/18 16:49 Instructions: DI for Delirium Tremens, DI for Alcohol Abuse, DI for Drug Abuse and Drug Addiction, Drug and Alcohol Withdrawal, DI for Drug or Alcohol Withdrawal Activity Restrictions/Additional Instructions: Thank you for trusting us with your care today. Please follow up with your primary care provider. I have given you to prescriptions. One is to help facilitate alcohol detox, and the 2nd is for nausea as needed. Please come back to the emergency department for any acute concerns such as seizures, confusion or wanting to hurt herself or anybody else. Please follow up with primary care provider in the next few days. Please rest and push fluids. Prescriptions: New ondansetron 4 mg tablet,disintegrating 4 mg PO Q8H PRN (Reason: nausea and vomiting) Qty: 30 RF: 0 chlordiazepoxide HCl 25 mg capsule See Rx Instructions .ROUTE .COMPLEX PRN (Reason: alcohol withdrawal) Qty: 32 RF: 0 No Action zinc gluconate 100 MG tablet 100 mg PO Qty: 0 RF: 0 vitamin B complex [B Complex-Vitamin B12] 1 EACH tablet 1 tab PO QDAY Qty: 0 RF: 0 biotin 2,500 MCG capsule 2,500 mcg PO Qty: 0 RF: 0 ginkgo biloba 120 MG tablet 120 mg PO Qty: 0 RF: 0 Referrals: Rosaline Lewis MD [Primary Care Provider] - <Anna Rivera DO - Last Filed: 10/28/18 18:54> Cosign ED Attending Roseanneature Attestation: I was immediately available in the department for consultation. Documentation has been reviewed. I agree with assessment and plan.
[2018-10-28 14:45] LABS: Acetaminophen < 10 ug/mL (10-30); Alanine Aminotransferase 32 IU/L (9-52); Albumin 4.8 g/dL (3.5-5.0); Albumin Globulin Ratio 1.5 (1.0-2.8); Alkaline Phosphatase 63 U/L (38-126); Aspartate Aminotransferase 59 IU/L (14-36); Bilirubin Total 0.5 mg/dL (0.2-1.3); Blood Urea Nitrogen 9 mg/dL (7-17); Calcium 9.3 mg/dL (8.4-10.2); Carbon Dioxide 26 mmol/L (22-32); Chloride 99 mmol/L (98-107); Estimated Glomerular Filt Rate > 60.0 mL/min (>60); Ethanol (ETOH) 253 mg/dL; Globulin 3.1 g/dL (1.7-4.1); Glucose 90 mg/dL (70-100); HEMOLYSIS < 15 (0-50); Potassium 4.4 mmol/L (3.4-5.1); Salicylate < 1.0 mg/dL (<20); Sodium 139 mmol/L (137-145); Total Protein 7.9 g/dL (6.3-8.2)
[2018-10-28 15:01] LABS: Urine Amphetamines Negative (Negative); Urine Barbiturates Negative (Negative); Urine Benzodiazepines Negative (Negative); Urine Cocaine Negative (Negative); Urine MDMA Negative (Negative); Urine Methadone Negative (Negative); Urine Methamphetamines Negative (Negative); Urine Morphine/Opi cutoff 2000 Negative (Negative); Urine Oxycodone Negative (Negative); Urine Phencyclidine Negative (Negative); Urine Tetrahydrocannabinol Negative (Negative); Urine Tricyclic Antidepressant Negative (Negative)
[2018-10-28 15:15] LABS: Thyroid Stimulating Hormone 0.99 uIU/mL (0.47-4.68)
[2018-10-28] MEDS: ONDANSETRON 4 MG ODT SL (15:56)
[2018-10-28] MEDS: LORazepam 0.5 MG TABLET 1 MG PO (15:56)
[2018-10-28 16:49] VITALS: BP 132/84; PULSE 94; RESP 18; O2SAT 96
== END 2018-10-28 16:50 | disposition home or self-care (01) ==
PROVIDERS: Emergency Provider Nurse Practitioner Family; PCP Family Medicine
DX: F10.10 Alcohol abuse, uncomplicated (principal); Y90.8 Blood alcohol level of 240 mg/100 ml or more
CPT/HCPCS: 36415; 80053; 80305; 80320; 80329; 81003; 81025; 84443; 85025; 99282; 99283; G0480

== ENCOUNTER 2019-10-02 15:58 | Emergency (ER) | payer OTHER, MEDICAID, SELFPAY ==
[2019-10-02 16:01] VITALS: BP 116/71; PULSE 68; RESP 22; TEMP 36.6; O2SAT 98
--- NOTE | 2019-10-02 16:05 | DI.RAD.S_ITS ---
PROCEDURE: XR RIBS RT MIN 3V W CXR 1V INDICATIONS: fall one week ago TECHNIQUE: 3 views of the right ribs were acquired, along with a single view chest. COMPARISON: None. FINDINGS: Surgical changes and devices: None. Bones and chest wall: Fractures of the right sixth seventh and eighth ribs. Lungs and pleura: No pleural effusions or pneumothorax. Lungs appear clear. Mediastinum: Mediastinal contours appear normal. Heart size is normal. IMPRESSION: Right sixth-eighth rib fractures. No pneumothorax identified Dictated by: Brian Zavaleta M.D. on 10/02/2019 at 16:51 Approved by: Brian Zavaleta M.D. on 10/02/2019 at 16:52
--- NOTE | 2019-10-02 17:02 | ED.FALL ---
HPI - Fall <PRAFUL Blackburn - Last Filed: 10/02/19 17:35> General Chief Complaint: Fall Stated Complaint: RIGHT RIB PAIN FALL Time Seen by Provider: 10/02/19 16:43 Source: patient Mode of arrival: Ambulatory Limitations: no limitations History of Present Illness HPI Narrative: This is a 49-year-old female, nonsmoker, who presents to ED with chief complain of right anterior chest wall pain radiating to right side mid back after a fall that happened about 10 days ago. Patient reports she had tripped and fell on the side of and table forward and then fall backwards and hit and dragged on a wall. Patient denies headache, losing consciousness, neck pain. Patient is here now since she is not getting better as expected and now she feels clicking and popping sensation in anterior chest. Patient denies fever, chills, nausea, vomiting, cough. Patient has not been taking any Tylenol or Motrin since she was advised by other medical provider with Covid 19 and NSAIDS precautions. Patient has been taking alcohol beverages to help with pain. Patient denies rash on her chest or back but healing abrasions from this fall. Related Data Home Medications Medication Instructions Recorded Confirmed biotin 2,500 mcg PO #0 05/24/16 08/30/18 vitamin B complex [B 1 tab PO QDAY #0 05/24/16 08/30/18 Complex-Vitamin B12] zinc gluconate 100 mg PO #0 05/24/16 08/30/18 ginkgo biloba 120 mg PO #0 01/17/17 08/30/18 Previous Rx's Medication Instructions Recorded chlordiazepoxide HCl See Rx Instructions .ROUTE 10/28/18 .COMPLEX PRN #32 cap ondansetron 4 mg PO Q8H PRN #30 tab 10/28/18 lidocaine 1 patch TOP DAILY #30 each 10/02/19 Allergies Allergy/AdvReac Type Severity Reaction Status Date / Time No Known Drug Allergies Allergy Verified 08/30/18 19:03 Review of Systems <PRAFUL Blackburn - Last Filed: 10/02/19 17:35> Review of Systems Narrative: General: Denies fever, chills, fatigue, malaise, sweats. HEENT: Denies sinus pain, ear pain, sore throat, difficulty swallowing, dizziness. Respiratory: Denies dyspnea, cough, wheezing, hemoptysis, sputum. Cardiovascular: Denies chest pain, palpitations, orthopnea, edema. Gastrointestinal: Denies nausea, vomiting, abdominal pain, diarrhea, constipation, melena. : Denies dysuria, frequency, incontinence, hematuria, urinary retention. Musculoskeletal: See HPI Skin: Denies rash, skin lesions, or other. Neurologic: Denies weakness, headache, numbness, change in speech, confusion, seizures, incoordination. Psychiatric: No concerning psychosocial issues. 12-point review of systems is negative except for those stated above. Patient History <PRAFUL Blackburn - Last Filed: 10/02/19 17:35> Social History Smoking Status: Never smoker Smoking Status: Never smoker alcohol intake frequency: 3 or more drinks per day Substance Use Type: does not use Exam <PRAFUL Blackburn - Last Filed: 10/02/19 17:35> Narrative Exam Narrative: General appearance: well developed, well nourished, in no acute distress. Head: normocephalic, atraumatic, no scalp lesions, non-tender. ENT: Hearing grossly intact. Nose without bleeding, purulent discharge. Mucous membrane moist, no mucosal lesion. Throat without erythema, tonsillar hypertrophy or exudate. Uvula in midline, airway patent. Neck/Thyroid: neck supple, full range of motion, no visible masses or meningeal signs. No JVD, non-tender without lymphadenopathy. Skin: no suspicious rashes, lesions over visible areas. Warm and dry and appropriate color for ethnicity. Heart: no clubbing, no cyanosis, no edema. S1 and S2 normal. RRR w/o murmurs, clicks, or bruits. Lungs: Breathing even and unlabored. Lungs clear to auscultate in bilateral lobes. No stridor. No accessory muscles used. Able to speak in full sentences. Chest: normal shape and expansion. Abdomen: non-obese, non-distended. Neurologic: alert and oriented. Cognitive exam, [employer] and PNS grossly intact on informal exam. Psych: good eye contact, normal affect. Initial Vital Signs Initial Vital Signs: Vital Signs Temperature 97.9 F 10/02/19 16:01 Pulse Rate 68 10/02/19 16:01 Respiratory Rate 22 10/02/19 16:01 Blood Pressure 116/71 10/02/19 16:01 Pulse Oximetry 98 10/02/19 16:01 Chest Chest: normal inspection of the chest, localized rib tenderness with anteroposterior compression, No mass, tenderness (Below right side breast radiating to back) and No rash <Donovan Grewal DO - Last Filed: 10/02/19 17:36> Initial Vital Signs Initial Vital Signs: Vital Signs Temperature 97.9 F 10/02/19 16:01 Pulse Rate 68 10/02/19 16:01 Respiratory Rate 22 10/02/19 16:01 Blood Pressure 116/71 10/02/19 16:01 Pulse Oximetry 98 10/02/19 16:01 Scores <PRAFUL Blackburn - Last Filed: 10/02/19 17:35> GCS Reta coma scale eye opening: Spontaneous Touchet coma scale verbal response: Orientated Reta coma scale motor response: Obey commands Touchet coma scale total score: 15 Course <PRAFUL Blackburn - Last Filed: 10/02/19 17:35> Orders Ordered: ED Orders 10/02/19 16:05 XR ribs RT min 3V w CXR1V Stat Discontinued Medications Acetaminophen (Tylenol) 650 mg PO NOW ONE Stop: 10/02/19 16:57 Last Admin: 10/02/19 17:08 Dose: 650 mg Documented by: POLO Ibuprofen (Advil) 400 mg PO NOW ONE Stop: 10/02/19 16:57 Last Admin: 10/02/19 17:08 Dose: 400 mg Documented by: POLO Lidocaine (Lidoderm) 1 each TOP NOW ONE Stop: 10/02/19 16:57 Last Admin: 10/02/19 17:08 Dose: 1 each Documented by: POLO Vital Signs Vital signs: Vital Signs - 8 hr 10/02/19 16:01 10/02/19 17:25 Temperature 97.9 F Pulse Rate 68 78 Respiratory Rate 22 16 Blood Pressure 116/71 120/70 Pulse Oximetry 98 97 <DO Yonatan Barbosa Last Filed: 10/02/19 17:36> Orders Ordered: ED Orders 10/02/19 16:05 XR ribs RT min 3V w CXR1V Stat Discontinued Medications Acetaminophen (Tylenol) 650 mg PO NOW ONE Stop: 10/02/19 16:57 Last Admin: 10/02/19 17:08 Dose: 650 mg Documented by: POLO Ibuprofen (Advil) 400 mg PO NOW ONE Stop: 10/02/19 16:57 Last Admin: 10/02/19 17:08 Dose: 400 mg Documented by: POLO Lidocaine (Lidoderm) 1 each TOP NOW ONE Stop: 10/02/19 16:57 Last Admin: 10/02/19 17:08 Dose: 1 each Documented by: POLO Vital Signs Vital signs: Vital Signs - 8 hr 10/02/19 16:01 10/02/19 17:25 Temperature 97.9 F Pulse Rate 68 78 Respiratory Rate 22 16 Blood Pressure 116/71 120/70 Pulse Oximetry 98 97 MDM - Fall <Lorenzo SusanPRAFUL - Last Filed: 10/02/19 17:35> Differential Diagnosis Differential diagnosis: Likely other (Rib contusion, rib fracture) Medical Records Attestation: I reviewed the patient's medical records. Imaging Data XR- Ribs: Radiologist's Impression: [place] [address] XRay Report Signed Patient: Serene Jeffrey LMR#: [id number] : 1970Acct:[id number] Age/Sex: 49 / FDate of Service: 10/02/19 Loc: ED Accession Number: [id number] Procedure: XR ribs RT min 3V w CXR1V Ordering Provider: Donovan Grewal D.O. PROCEDURE: XR RIBS RT MIN 3V W CXR 1V INDICATIONS: fall one week ago TECHNIQUE: 3 views of the right ribs were acquired, along with a single view chest. COMPARISON: None. FINDINGS: Surgical changes and devices: None. Bones and chest wall: Fractures of the right sixth seventh and eighth ribs. Lungs and pleura: No pleural effusions or pneumothorax. Lungs appear clear. Mediastinum: Mediastinal contours appear normal. Heart size is normal. IMPRESSION: Right sixth-eighth rib fractures. No pneumothorax identified Dictated by: Brian Zavaleta M.D. on 10/02/2019 at 16:51 Approved by: Brian Zavaleta M.D. on 10/02/2019 at 16:52 [facility] Narrative Medical decision making narrative: Lung sounds are clear to auscultate and without increased respiratory effort. Right mid to lower anterior chest and right-sided back is tender to palpate. Chest/rib x-ray indicates rib 6, 7, 8 fracture without pneumothorax. No signs of shingles. Patient advised to use [id number] Tylenol and or Motrin as needed. Lidocaine patch as transmitted to pharmacy for patient has use. Advised deep breathing exercises to prevent pneumonia. Return precautions were discussed with the patient and she verbalized understanding in agreement with the treatment plan. Discharge Plan Departure Patient Disposition: Home Clinical Impression: Closed rib fracture Qualifiers: Encounter type: initial encounter Rib fracture type: multiple ribs Laterality: right Qualified Code(s): S22.41XA - Multiple fractures of ribs, right side, initial encounter for closed fracture Discharge Date/Time: 10/02/19 17:26 Instructions: DI for Rib Fracture Activity Restrictions/Additional Instructions: You have been diagnosed with [right-side 6, 7 and 8 rib fracture per x-ray test today. Please do deep breathing exercise with I/S machine 10 times every hour while your awake to prevent pneumonia.]. What to do: *Take your medications as directed. Please take [id number] Tylenol and or Motrin as needed for discomfort and use lidocaine patch. Tylenol 650-1000 mg up to 3 to 4 times a day as needed for pain. Ibuprofen/Motrin 400-600 mg up to 3 times a day as needed for with food. Lidocaine patch stays on affected site for 12 hours and off for 12 hours. [facility] *Follow up with your primary care provider in 2-3 days, call for an appointment. Let them know you were seen in the ED and that we asked you to be seen in follow up. *Return to ED if you have any new, worsening, or concerning symptoms, such as [chest pain, breathing difficulty, unable to tolerate fluids, fever, productive cough, or any acute concerns]. Prescriptions: New lidocaine 5 % adhesive patch,medicated 1 patch TOP DAILY Qty: 30 RF: 0 No Action zinc gluconate 100 MG tablet 100 mg PO Qty: 0 RF: 0 vitamin B complex [B Complex-Vitamin B12] 1 EACH tablet 1 tab PO QDAY Qty: 0 RF: 0 biotin 2,500 MCG capsule 2,500 mcg PO Qty: 0 RF: 0 ginkgo biloba 120 MG tablet 120 mg PO Qty: 0 RF: 0 ondansetron 4 mg tablet,disintegrating 4 mg PO Q8H PRN (Reason: nausea and vomiting) Qty: 30 RF: 0 chlordiazepoxide HCl 25 mg capsule See Rx Instructions .ROUTE .COMPLEX PRN (Reason: alcohol withdrawal) Qty: 32 RF: 0 Referrals: Rosaline Lewis MD [Primary Care Provider] - <Donovan Grewal DO - Last Filed: 10/02/19 17:36> [facility]: Dr Grewal Co-Sign Statement: I was available for consultation during this patient's emergency department visit. This chart is signed by myself for administrative purposes only. I did not have direct contact with this patient during this visit. They were seen independently by the APC.
[2019-10-02] MEDS: IBUPROFEN 400 MG TABLET PO (17:08)
[2019-10-02] MEDS: ACETAMINOPHEN 325 MG TABLET 650 MG PO (17:08)
[2019-10-02] MEDS: LIDOCAINE PATCH 1 EACH ADH..PATCH TOP (17:08)
[2019-10-02 17:25] VITALS: BP 120/70; PULSE 78; RESP 16; O2SAT 97
[2019-10-02 17:44] VITALS: O2SAT 99
== END 2019-10-02 17:26 | disposition home or self-care (01) ==
PROVIDERS: Emergency Provider Nurse Practitioner Family; PCP Family Medicine
DX: S22.41XA Multiple fractures of ribs, right side, initial encounter for closed fracture (principal); W19.XXXA Unspecified fall, initial encounter
CPT/HCPCS: 71101; 99283

== ENCOUNTER → 2019-10-25 07:53 | Outpatient (CLI) | payer OTHER, MEDICAID, SELFPAY ==
[2019-10-25 08:33] LABS: Add Manual Diff / Slide Review NO; Basophils Absolute Auto 0 /uL (0-100); Basophils Percent Auto 0.9 % (0-2); Eosinophils Absolute Auto 200 /uL (0-450); Eosinophils Percent Auto 4.9 % (2-4); Hematocrit 38.9 % (36-46); Hemoglobin 13.2 g/dL (12.0-16.0); Lymphocytes Absolute Auto 1400 /uL (1100-4500); Lymphocytes Percent Auto 27.2 % (25-40); Mean Corpuscular Hemoglobin 30.9 PG (26-34); Mean Corpuscular Volume 90.7 fL (80-100); Monocytes Absolute Auto 400 /uL (0-900); Monocytes Percent Auto 8.8 % (3-14); Neutrophils Absolute Auto 2900 /uL (1500-7000); Neutrophils Percent Auto 58.2 % (50-75); Platelet Count 338 X10^3/uL (150-400); Red Blood Cell Count 4.29 X10^6/uL (4.0-5.2); Red Cell Distribution Width 14.3 % (11.6-14.8)
[2019-10-25 08:47] LABS: Alanine Aminotransferase 15 IU/L (<35); Albumin 4.8 g/dL (3.5-5.0); Albumin Globulin Ratio 1.8 (1.0-2.8); Alkaline Phosphatase 65 U/L (38-126); Aspartate Aminotransferase 34 IU/L (14-36); BUN Creatinine Ratio 25.6 (6-22); Bilirubin Total 0.9 mg/dL (0.2-1.3); Blood Urea Nitrogen 20 mg/dL (7-17); Calcium 10.2 mg/dL (8.4-10.2); Carbon Dioxide 27 mmol/L (22-32); Chloride 101 mmol/L (98-107); Cholesterol 215 mg/dL (140-199); Estimated Glomerular Filt Rate > 60.0 mL/min (>60); Globulin 2.7 g/dL (1.7-4.1); Glucose 77 mg/dL (70-100); HDL Cholesterol 61 mg/dL (40-60); HEMOLYSIS < 15 (0-50); LDL Cholesterol Calculated 136 mg/dL (<100); Potassium 3.7 mmol/L (3.4-5.1); Sodium 137 mmol/L (137-145); Total Protein 7.5 g/dL (6.3-8.2); Triglycerides 92 mg/dL (35-150)
[2019-10-25 09:09] LABS: TSH w/ Reflex to FT4 1.96 uIU/mL (0.47-4.68)
== END ==
PROVIDERS: PCP Family Medicine; Referring Provider Registered Nurse Diabetes Educator; Visit Provider Registered Nurse Diabetes Educator
DX: F10.10 Alcohol abuse, uncomplicated (principal); R63.5 Abnormal weight gain
CPT/HCPCS: 36415; 80053; 80061; 84443; 85025

== ENCOUNTER → 2019-10-29 12:39 | Outpatient (CLI) | payer OTHER, MEDICAID, SELFPAY ==
--- NOTE | 2019-10-29 12:43 | DI.US.S_ITS ---
PROCEDURE: US EXTREMELY NONVASC UPPER RT INDICATIONS: RIGHT ANTERIOR SHOULDER PALPABLE LUMP x 1 YEAR TECHNIQUE: Real-time scanning was performed of the right anterior shoulder, with image documentation. COMPARISON: Located Within [facility], CR, XR RIBS RT MIN 3V W CXR 1V, 10/02/2019, 16:13. FINDINGS: 2.5 x 0.5 x 2.5 cm isoechoic soft tissue mass corresponding to the palpable abnormality. No vascularity. 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 No suspicious imaging features. However differential diagnosis would include both benign and malignant etiologies. If indicated, soft tissue MRI could be performed. Dictated by: Castillo ALVA Interpreted: Ko Iniguez MD on 10/29/2019 at 14:46 Approved by: Ko Iniguez M.D. on 10/29/2019 at 15:21
== END ==
PROVIDERS: PCP Family Medicine; Referring Provider Registered Nurse Diabetes Educator; Visit Provider Registered Nurse Diabetes Educator
DX: R22.30 Localized swelling, mass and lump, unspecified upper limb (principal)
CPT/HCPCS: 76882

== ENCOUNTER → 2019-11-14 15:42 | Outpatient (CLI) | payer OTHER, MEDICAID, SELFPAY ==
[2019-11-15 14:36] LABS: Fecal Immunochemical Test Negative (Negative)
== END ==
PROVIDERS: PCP Registered Nurse Diabetes Educator; Referring Provider Registered Nurse Diabetes Educator; Visit Provider Registered Nurse Diabetes Educator
DX: Z12.11 Encounter for screening for malignant neoplasm of colon (principal)
CPT/HCPCS: 82274

== ENCOUNTER → 2019-11-20 07:16 | Outpatient (CLI) | payer OTHER, MEDICAID, SELFPAY ==
--- NOTE | 2019-11-20 07:17 | DI.MRI.S_ITS ---
PROCEDURE: MR SHOULDER RT WO/W CON INDICATIONS: mass rt shoulder- prob benign lipoma TECHNIQUE: Noncontrast oblique coronal T1 spin echo and T2 fast spin echo with fat saturation, oblique sagittal T1 spin echo and T2 fast spin echo with fat saturation, axial T1 spin echo and T2 fast spin echo with fat saturation through the shoulder. Post-contrast oblique coronal, oblique sagittal, and axial T1 spin echo with fat saturation through the shoulder. COMPARISON: None. FINDINGS: Image quality: Excellent. Rotator cuff: Supraspinatus and infraspinatus tendinopathy is present. There is high-grade partial-thickness bursal sided tear involving the junction of the supraspinatus and infraspinatus tendons. There is also diffuse low-grade bursal surface fraying of the supraspinatus and infraspinatus tendons. Teres minor and subscapularis appear intact. No atrophy of the rotator cuff muscles, although fatty infiltration of the supraspinatus and infraspinatus is present. No discrete mass seen in the area of the fiducial marker placed on the anterior right shoulder. There is underlying fat signal intensity. No definite capsulated lipoma is seen although unencapsulated lipoma is conceivable. Bones and bursae: No bone marrow contusions or fractures. Mild acromioclavicular joint degeneration. Acromion demonstrates conventional anatomy, without an os acromiale. Moderate subacromial-subdeltoid bursitis. Capsule and soft tissues: Labrum: Ill-defined fraying of the posterosuperior labrum, in the anterior inferior segment which could be chronic degenerative tear or fraying, versus remote tear. No definite intrasubstance fluid signal intensity identified Long head of the biceps tendon intact. The rotator interval appears normal, without fibrosis. Coracohumeral ligament intact. IMPRESSION: No discrete mass seen in the area marked by the fiducial. No suspicious enhancement. Recommend clinical management and if necessary, continued imaging surveillance could be performed if clinical changes detected. High-grade partial-thickness bursal sided tear at the junction of the supraspinatus and infraspinatus tendons. Additional diffuse bursal surface fraying of the supraspinatus and infraspinatus tendons. Moderate subacromial-subdeltoid bursitis Ill-defined frayed appearance of the posterosuperior and anteroinferior segments of the labrum which are probably chronic/degenerative. Dictated by: Brian Zavaleta M.D. on 11/20/2019 at 9:48 Approved by: Brian Zavaleta M.D. on 11/20/2019 at 10:09
== END ==
PROVIDERS: PCP Registered Nurse Diabetes Educator; Referring Provider Registered Nurse Diabetes Educator; Visit Provider Registered Nurse Diabetes Educator
DX: R22.30 Localized swelling, mass and lump, unspecified upper limb (principal); M75.111 Incomplete rotator cuff tear or rupture of right shoulder, not specified as traumatic; M75.51 Bursitis of right shoulder
CPT/HCPCS: 73223; A9579

== ENCOUNTER → 2019-12-16 13:08 | Outpatient (CLI) | payer OTHER, MEDICAID, SELFPAY | PROVIDERS: PCP Registered Nurse Diabetes Educator; Visit Provider Nurse Practitioner | DX: R30.0 Dysuria (principal) | CPT/HCPCS: 87077; 87086; 87186 ==

== ENCOUNTER → 2020-01-31 15:07 | Outpatient (CLI) | payer OTHER, MEDICAID, SELFPAY ==
[2020-02-01 07:43] LABS: COVID19 Sendout Not Detected (Not Detect)
== END ==
PROVIDERS: PCP Registered Nurse Diabetes Educator; Visit Provider Physician Assistant
DX: Z11.59 Encounter for screening for other viral diseases (principal)
CPT/HCPCS: 87635

== ENCOUNTER → 2020-05-09 17:00 | Outpatient (CLI) | payer OTHER, MEDICAID, SELFPAY ==
--- NOTE | 2020-05-09 17:02 | DI.MG.S_ITS ---
BILATERAL DIGITAL SCREENING MAMMOGRAM 3D/2D WITH CAD: 05/09/2020 CLINICAL: Routine screening. Family history of breast cancer. Comparison is made to exams dated: 04/24/2018 mammogram, 03/11/2017 mammogram, and 03/05/2016 mammogram - [facility]. The tissue of both breasts is heterogeneously dense. This may lower the sensitivity of mammography. Current study was also evaluated with a Computer Aided Detection (CAD) system. No significant masses, calcifications, or other findings are seen in either breast. There has been no significant interval change. IMPRESSION: NEGATIVE There is no mammographic evidence of malignancy. A 1 year screening mammogram is recommended. This exam was interpreted at Station ID: [id number]. NOTE: For mammograms, a report in lay terms will be sent to the patient. Approximately 15% of breast malignancies will not be visualized mammographically. In the management of a palpable breast mass, a negative mammogram must not discourage biopsy of a clinically suspicious lesion. Electronically Signed By: Conner espinosa/sandhya:05/12/2020 07:59:09 letter sent: Normal Exam ACR BI-RADS Category 1: Negative 3341F
== END ==
PROVIDERS: PCP Registered Nurse Diabetes Educator; Referring Provider Registered Nurse Diabetes Educator; Visit Provider Registered Nurse Diabetes Educator
DX: Z12.31 Encounter for screening mammogram for malignant neoplasm of breast (principal); Z80.3 Family history of malignant neoplasm of breast
CPT/HCPCS: 77063; 77067

== ENCOUNTER 2020-10-28 09:47 | Emergency (ER) | payer OTHER, MEDICAID, SELFPAY ==
[2020-10-28 09:51] VITALS: BP 155/90; PULSE 74; RESP 14; TEMP 36.4; O2SAT 99
--- NOTE | 2020-10-28 09:57 | DI.RAD.S_ITS ---
PROCEDURE: XR WRIST RT MIN 3V INDICATIONS: fx 1 week ago, needs repeat films. TECHNIQUE: 3 views of the wrist were acquired. COMPARISON: Outside Facility, RG, XR FOREARM 2V RIGHT, 10/22/2020, 17:02. Outside Facility, RG, XR WRIST 3V RIGHT, 10/22/2020, 17:02. FINDINGS: Bones: Interval reduction of previous distal radial fracture. There is relatively good anatomic alignment. Ulna styloid fracture is present. Scaphoid view: Not obtained. Soft tissues: No suspicious soft tissue calcifications. IMPRESSION: Relatively good anatomic alignment of distal radial fracture. Ulna styloid fracture is present. Dictated by: Lizbeth Encinas M.D. on 10/28/2020 at 10:35 Approved by: Lizbeth Encinas M.D. on 10/28/2020 at 10:36
== END 2020-10-28 11:15 | disposition left against medical advice (07) ==
PROVIDERS: Emergency Provider Emergency Medicine; PCP Registered Nurse Diabetes Educator
DX: S62.101A Fracture of unspecified carpal bone, right wrist, initial encounter for closed fracture (principal)
CPT/HCPCS: 73110; 99283

== ENCOUNTER → 2020-11-01 10:00 | Outpatient (CLI) | payer OTHER, MEDICAID, SELFPAY ==
[2020-11-01 11:03] LABS: COVID19 -Nasal RAPID Negative (Negative)
== END ==
PROVIDERS: PCP Registered Nurse Diabetes Educator; Referring Provider Physician Assistant; Visit Provider Physician Assistant
DX: Z01.812 Encounter for preprocedural laboratory examination (principal); Z20.822 Contact with and (suspected) exposure to COVID-19
CPT/HCPCS: 87635

== ENCOUNTER 2020-11-04 06:15 | Day surgery (SDC) | payer OTHER, MEDICAID, SELFPAY ==
[2020-10-30 11:41] VITALS: BMI 23.6
[2020-11-04] VITALS (7 sets, daily range): BP systolic 106–117; BP diastolic 63–84; PULSE 60–77; RESP 12–14; TEMP 37.1–37.2; O2SAT 94–98; BMI 23.6
[2020-11-04] MEDS: LACTATED RINGERS 1,000 ML 42 ML IV ×2 (06:53→09:04)
--- NOTE | 2020-11-04 07:53 | PM.PREOP ---
Pre-operative Note COVID-19 COVID-19 status: Negative Interval Note History & Physical reviewed/Exam performed by Physician: Yes Changes to H&P: No
--- NOTE | 2020-11-04 07:55 | P.OP_ITS ---
Operative Date/Time/Diagnoses Date of procedure: 11/04/20 Time of procedure: 08:10 Pre-op diagnosis: right radius fracture intra-articular Post-op diagnosis: same Procedure & Clinicians Procedure: Open reduction internal fixation right distal radius fracture intra- articular Same procedure as scheduled: Yes Indications: This is a 50-year-old female who fell and sustained a displaced right distal radius fracture she is brought the operating room for open reduction internal fixation. Surgeon: Mona May Music Specialist: Mitch Molina Anesthesia Type: General and Peripheral nerve block Operative Notes Findings: Comminuted fracture with significant shortening, good reduction, adequate bone Closure Type: primary Specimen(s): none sent Prosthetic devices, grafts, tissues, transplants, or devices: Arthrex volar distal radius plate Estimated Blood Loss (mL): 50 Blood products transfused: none Tourniquet time (min): 78 Procedure in detail: Patient was brought to the operating room. She was given IV antibiotics. A time-out was performed. Her right upper extremity prepped and draped standard sterile fashion. High arm tourniquet was applied and elevated for 70 minutes. The arm was exsanguinated and the tourniquet was elevated to 250 mmHg. A volar skin incision was made dissection and was carried out through skin and subcutaneous tissues. Headlight and it was placed on the radial aspect of the wrist with curvilinear approach across the wrist crease. Dissection was carried out down along the flexor carpi radialis. The tendon was carefully mobilized and the inched tendon sheath was incised on the volar aspect of the distal radius. The muscle was carefully stripped from the distal radius. Fracture was examined it was noted to be substantially shortened. It was then meticulously reduced I did remove small amount of fracture hematoma and specifically worked hard to get better reduction of the distal radius. Neck Arthrex volar distal radius plate was selected neural with standard number of screw holes. Dissection was carried out to the volar wrist the plate was meticulously applied to the volar wrist. It was fixed to the volar wrist and then I got intraoperative films to reconfirm the position of the plate and the reduction. Good quality reduction was achieved. I did adjust the plate slightly and then the distal row of screws was meticulously filled. Proximal screws were filled without difficulty. Distal screws were placed in locking mode proximal shaft screws were nonlocking. Reduction and overall alignment of the fracture and position of the plate was confirmed radiographically. The wound was meticulously irrigated with saline. Marcaine was carefully injected. The muscle was gently pulled over the plate and the wound was closed with interrupted Vicryl and interrupted nylon. Wound was dressed sterilely the patient was placed in a short-arm splint. She tolerated the procedure well. She was transferred recovery room in satisfactory condition complications none. Complications: none Post-operative Condition: stable Disposition: same day surgery Plan for aftercare: Return to clinic in 10-14 days for suture removal and then can be placed in a custom and removable splint.
[2020-11-04] MEDS: CEFAZOLIN 1 GM VIAL 2 GM IV (07:56)
--- NOTE | 2020-11-04 08:01 | SUR.PREOP ---
Block start time [0736] . Monitoring initiated and maintained throughout procedure. Oxygen and medications given per anesthesiologist instructions. Patient remained stable throughout procedure, no adverse reactions noted. Block end time [0749].
--- NOTE | 2020-11-04 08:18 | SUR.OPER ---
Addendum entered by Easton Bruec R.N. 11/04/20 08:19: right arm draped free on black arm table left arm padded and secured at side on padded armboard Original Note: Supine on padded OR bed, head on pillow, arms secured on padded arm boards at <90 degrees abduction, legs uncrossed, safety belt at thigh, tape over blanket over lower legs.
--- NOTE | 2020-11-04 08:22 | PM.PROC.1 ---
Procedures Date/Time Date of procedure: 11/04/20 Time of procedure: 07:40 General Procedure description: Ultrasound guided supraclavicular brachial plexus nerve block for post op pain control after right distal radius ORIF by Dr. May. Risk and benefits of procedure discussed with patient. ASA monitoring applied to patient. O2 given via nasal cannula. 2 mg Versed and 50 mcg fentanyl given for procedural sedation. Skin site was prepped with chlorhexidine and allowed to fully dry. Sterile gloves, mask, hat and probe cover were used to maintain sterility. 2% lidocaine and 30ga needle was used to make a small skin wheal at needle insertion site. Under ultrasound guidance, a 21ga 50mm Pajunk needle was directed beneath the clavicle toward the subclavian artery near the brachial plexus. Patient reported no parasthesias. After negative aspiration, 20 mL 0.5% ropivicaine and 10mg dexamethasone were injected around brachial plexus. Patient tolerated procedure well.
[2020-11-04] MEDS: BUPIVACAINE 0.5% (PF) VIAL 30 ML INJ (08:37)
== END 2020-11-04 10:30 | disposition home or self-care (01) ==
PROVIDERS: PCP Registered Nurse Diabetes Educator; Referring Provider Registered Nurse Diabetes Educator; Visit Provider Orthopaedic Surgery
PROC: (CPT 25608; principal; 2020-11-04 07:45)
DX: S52.571A Other intraarticular fracture of lower end of right radius, initial encounter for closed fracture (principal); W01.0XXA Fall on same level from slipping, tripping and stumbling without subsequent striking against object, initial encounter; Y93.89 Activity, other specified; Y92.89 Other specified places as the place of occurrence of the external cause
CPT/HCPCS: 25608; 64450; J0690; J1100; J2250; J2405; J2704; J3010

== ENCOUNTER → 2021-01-13 08:24 | Outpatient (CLI) | payer OTHER, MEDICAID, SELFPAY ==
[2021-01-13 09:21] LABS: Add Manual Diff / Slide Review NO; Basophils Absolute Auto 0 /uL (0-100); Basophils Percent Auto 0.6 % (0-2); Eosinophils Absolute Auto 300 /uL (0-450); Eosinophils Percent Auto 4.1 % (2-4); Hematocrit 41.7 % (36-46); Hemoglobin 13.7 g/dL (12.0-16.0); Lymphocytes Absolute Auto 1700 /uL (1100-4500); Lymphocytes Percent Auto 28.1 % (25-40); Mean Corpuscular HGB Conc 32.8 % (30-36); Mean Corpuscular Hemoglobin 30.1 PG (26-34); Mean Corpuscular Volume 91.9 fL (80-100); Monocytes Absolute Auto 500 /uL (0-900); Monocytes Percent Auto 8.5 % (3-14); Neutrophils Absolute Auto 3600 /uL (1500-7000); Neutrophils Percent Auto 58.7 % (50-75); Platelet Count 357 X10^3/uL (150-400); Red Blood Cell Count 4.54 X10^6/uL (4.0-5.2); Red Cell Distribution Width 13.6 % (11.6-14.8); White Blood Cell Count 6.2 X10^3/uL (4.5-11.0)
[2021-01-13 09:29] LABS: Hemoglobin A1C% w Est Avg Glu 4.9 % (4.0-6.0)
[2021-01-13 09:31] LABS: Alanine Aminotransferase 17 IU/L (<35); Albumin 4.8 g/dL (3.5-5.0); Albumin Globulin Ratio 1.5 (1.0-2.8); Alkaline Phosphatase 65 U/L (38-126); Aspartate Aminotransferase 34 IU/L (14-36); BUN Creatinine Ratio 16.9 (6-22); Bilirubin Total 0.6 mg/dL (0.2-1.3); Blood Urea Nitrogen 13 mg/dL (7-17); Calcium 10.3 mg/dL (8.4-10.2); Carbon Dioxide 32 mmol/L (22-32); Chloride 104 mmol/L (98-107); Cholesterol 228 mg/dL (140-199); Estimated Glomerular Filt Rate > 60.0 mL/min (>60); Globulin 3.2 g/dL (1.7-4.1); Glucose 97 mg/dL (70-100); HDL Cholesterol 71 mg/dL (40-60); HEMOLYSIS < 15 (0-50); LDL Cholesterol Calculated 138 mg/dL (<100); Potassium 4.9 mmol/L (3.4-5.1); Sodium 140 mmol/L (137-145); Triglycerides 95 mg/dL (35-150)
[2021-01-13 10:04] LABS: Thyroid Stimulating Hormone 1.55 uIU/mL (0.47-4.68)
== END ==
PROVIDERS: Family Medicine; PCP Registered Nurse Diabetes Educator; Referring Provider Registered Nurse Diabetes Educator; Visit Provider Registered Nurse Diabetes Educator
DX: F10.10 Alcohol abuse, uncomplicated (principal); R55 Syncope and collapse; R63.5 Abnormal weight gain
CPT/HCPCS: 36415; 80053; 80061; 83036; 84443; 85025

== ENCOUNTER → 2021-06-11 15:45 | Outpatient (CLI) | payer OTHER, MEDICAID, SELFPAY ==
--- NOTE | 2021-06-11 15:47 | DI.MG.S_ITS ---
BILATERAL DIGITAL SCREENING MAMMOGRAM 3D/2D WITH CAD: 06/11/2021 CLINICAL: Routine screening. Family history of breast cancer. Comparison is made to exams dated: 05/09/2020 mammogram, 04/24/2018 mammogram, and 03/11/2017 mammogram - [facility]. The tissue of both breasts is heterogeneously dense. This may lower the sensitivity of mammography. Current study was also evaluated with a Computer Aided Detection (CAD) system. No significant masses, calcifications, or other findings are seen in either breast. There has been no significant interval change. IMPRESSION: NEGATIVE There is no mammographic evidence of malignancy. A 1 year screening mammogram is recommended. This exam was interpreted at Station ID: [id number]. NOTE: For mammograms, a report in lay terms will be sent to the patient. Approximately 15% of breast malignancies will not be visualized mammographically. In the management of a palpable breast mass, a negative mammogram must not discourage biopsy of a clinically suspicious lesion. Electronically Signed By: Jason Zamudio M.D., jr/sandhya:06/12/2021 14:28:09 letter sent: Normal Exam ACR BI-RADS Category 1: Negative 3341F
== END ==
PROVIDERS: PCP Registered Nurse Diabetes Educator; Referring Provider Registered Nurse Diabetes Educator; Visit Provider Registered Nurse Diabetes Educator
DX: Z12.31 Encounter for screening mammogram for malignant neoplasm of breast (principal); Z80.3 Family history of malignant neoplasm of breast
CPT/HCPCS: 77063; 77067

== ENCOUNTER 2021-11-25 19:00 | Emergency (ER) | payer OTHER, MEDICAID, SELFPAY ==
[2021-11-25 19:34] VITALS: BP 122/80; PULSE 85; RESP 24; TEMP 37.4; O2SAT 97; BMI 21.7
--- NOTE | 2021-11-25 19:41 | DI.RAD.S_ITS ---
PROCEDURE: XR FOOT LT MIN 3V INDICATIONS: fall TECHNIQUE: 3 views of the foot were acquired. COMPARISON: None. FINDINGS: Bones: No acute displaced fractures or dislocations. No suspicious bony lesions. Soft tissues: No tibiotalar joint effusion. Achilles tendon appears normal. IMPRESSION: 1. No acute displaced fracture or dislocation. Dictated by: Erich Waterman M.D. on 11/25/2021 at 20:37 Approved by: Erich Waterman M.D. on 11/25/2021 at 20:38
[2021-11-25] MEDS: IBUPROFEN 400 MG TABLET 800 MG PO (20:36)
== END 2021-11-26 00:22 | disposition left against medical advice (07) ==
PROVIDERS: Emergency Provider Emergency Medicine; PCP Registered Nurse Diabetes Educator
DX: S99.912A Unspecified injury of left ankle, initial encounter (principal)
CPT/HCPCS: 73630; 99283

== ENCOUNTER → 2022-06-21 14:49 | Outpatient (CLI) | payer OTHER, MEDICAID, SELFPAY ==
--- NOTE | 2022-06-21 | DI.MG.S_ITS ---
BILATERAL DIGITAL SCREENING MAMMOGRAM 3D/2D WITH CAD: 06/21/2022 CLINICAL: Routine screening. Family history of breast cancer. Comparison is made to exams dated: 06/11/2021 mammogram, 05/09/2020 mammogram, 04/24/2018 mammogram, and 03/11/2017 mammogram - [facility]. Both breasts are heterogeneously dense, which may obscure small masses (category c / 51-75% glandular tissue). Current study was also evaluated with a Computer Aided Detection (CAD) system. No significant masses, calcifications, or other findings are seen in either breast. There has been no significant interval change. IMPRESSION: NEGATIVE There is no mammographic evidence of malignancy. A 1 year screening mammogram is recommended. Based on the Tyrer Cuzick model (a risk assessment model) the patient's lifetime risk is 12.5% and her 10 year risk is 3.4%. According to the ACR, ACS, and NCCN guidelines, an annual breast MRI exam along with mammogram is recommended if the patient's lifetime risk is 20% or greater. This exam was interpreted at Station ID: [id number]. NOTE: For mammograms, a report in lay terms will be sent to the patient. Approximately 15% of breast malignancies will not be visualized mammographically. In the management of a palpable breast mass, a negative mammogram must not discourage biopsy of a clinically suspicious lesion. Electronically Signed By: Ko hu/sandhya:06/22/2022 08:12:47 letter sent: Normal Exam ACR BI-RADS Category 1: Negative 3341F
== END ==
PROVIDERS: PCP Registered Nurse Diabetes Educator; Referring Provider Registered Nurse Diabetes Educator; Visit Provider Registered Nurse Diabetes Educator
DX: Z12.31 Encounter for screening mammogram for malignant neoplasm of breast (principal); Z80.3 Family history of malignant neoplasm of breast
CPT/HCPCS: 77063; 77067

== ENCOUNTER 2023-01-18 14:16 | Emergency (ER) | payer OTHER, MEDICAID, SELFPAY ==
[2023-01-18 14:21] VITALS: BP 132/81; PULSE 75; RESP 17; TEMP 36.9; O2SAT 99; BMI 20.7
--- NOTE | 2023-01-18 14:27 | DI.RAD.S_ITS ---
PROCEDURE: XR HIP W PEL IF DONE LT 2V INDICATIONS: injury TECHNIQUE: AP pelvis with lateral view(s) of the left hip(s). COMPARISON: None. FINDINGS: Bones: No fractures or dislocations. Pelvic ring appears intact. No suspicious bony lesions. Mild left hip osseous hypertrophy compatible with mild osteoarthritis. Soft tissues: The visualized bowel gas pattern is normal. No suspicious soft tissue calcifications. IMPRESSION: No fracture. No acute osseous lesion. If symptoms and/or clinical suspicion for pathology persists, further assessment with repeat radiographs (7-10 days) or advanced imaging (e.g. CT, MRI or bone scan) should be considered. Dictated by: Lashae Johnston MD, PhD on 01/18/2023 at 14:39 Approved by: Lashae Johnston MD, PhD on 01/18/2023 at 14:40
[2023-01-18] MEDS: TET,DIPH,PERTUSS(ACELL),VAC/PF 0.5 ML SYRINGE IM (15:15)
--- NOTE | 2023-01-18 15:20 | ED_ITS ---
HPI - Extremity Injury (Lower) <Tyler Alvarado PA-C - Last Filed: 01/18/23 15:40> General Chief Complaint: Extremity Injury, Lower Stated Complaint: fell T-2 into counter pain is getting worse LT hip Time Seen by Provider: 01/18/23 15:12 Source: patient Mode of arrival: Ambulatory History of Present Illness HPI Narrative: 52-year-old female presents to the ED status post a left hip injury sustained 4 days prior to arrival. Patient states that she would a mechanical fall and she fell over on her counter, bumping her left hip, causing an abrasion. Patient has Steri-Strips the abrasion. Patient states that she came into the ED since her left hip pain has worsened over the last 2 days. Patient states that it is extremely painful to bear weight and walk on the left leg. Patient denies numbness, tingling, weakness. Patient does endorse that ibuprofen improves her symptoms and she is able to walk. Related Data Home Medications Medication Instructions Recorded Confirmed acyclovir 200 mg capsule 200 mg PO PRN PRN rash 01/18/23 01/18/23 Previous Rx's Medication Instructions Recorded hydroxyzine HCl 25 mg tablet 25 mg PO TID PRN anxiety #90 tabs 11/05/22 Allergies Allergy/AdvReac Type Severity Reaction Status Date / Time No Known Drug Allergies Allergy Verified 01/18/23 14:25 Review of Systems <Tyler Alvarado PA-C - Last Filed: 01/18/23 15:40> Review of Systems ROS Unobtainable: All systems reviewed & are unremarkable except as noted in HPI and below Constitutional Constitutional: Denies chills, Denies fatigue, Denies fever(s), Denies frequent falls, Denies lethargy and Denies weakness Eyes Eyes: Denies change in vision, Denies eye discharge, Denies irritation and Denies loss of vision ENT Ears, Nose, Mouth, and Throat: Denies change in voice, Denies dizziness, Denies neck pain, Denies sore throat and Denies throat swelling Cardiovascular Cardiovascular: Denies chest pain, Denies irregular heart rhythm, Denies lightheadedness, Denies palpitations, Denies dyspnea, Denies dyspnea on exertion and Denies orthopnea Respiratory Respiratory: Denies cough, Denies dyspnea, Denies dyspnea on exertion and Denies wheezing Gastrointestinal Gastrointestinal: Denies abdominal pain, Denies change in bowel habits, Denies diarrhea, Denies nausea and Denies vomiting Genitourinary Genitourinary: Denies hematuria, Denies flank pain, Denies urinary incontinence and Denies urinary urgency Musculoskeletal Musculoskeletal: Denies back pain, Denies muscle weakness, Denies neck pain, Denies numbness and Denies tingling Comments: Left hip pain, abrasion Integumentary/Breasts Skin/Breast: Denies pruritus, Denies erythema, Denies rash and Denies wounds Neurologic Neurologic: Denies behavioral changes, Denies confusion, Denies dizziness, Denies frequent falls, Denies loss of vision, Denies numbness, Denies tingling and Denies weakness Psychiatric Psychiatric: Denies anxiety, Denies behavioral changes, Denies confusion, Denies depression, Denies homicidal ideation and Denies suicidal ideation Endocrine Endocrine: Denies fatigue, Denies flushing and Denies palpitations Hematologic/Lymphatic Hematologic/Lymphatic: Denies easy bruising Allergic/Immunologic Allergic/Immunologic: Denies urticaria, Denies throat swelling and Denies wheezing Patient History <Tyler Alvarado PA-C - Last Filed: 01/18/23 15:40> Medical History Blepharospasm of both eyes Cervical strain Colon cancer screening Impacted cerumen, right ear Mass Mass of shoulder region Weight gain Well adult Social History household members: significant other Smoking Status: Former smoker Tobacco: How many years used: 1 alcohol intake: former substance use type: does not use Smoking Status: Former smoker alcohol intake frequency: 0-2 drinks per day Substance Use Type: does not use Exam <Tyler Alvarado PA-C - Last Filed: 01/18/23 15:40> Narrative Exam Narrative: Const General:?cooperative, healthy appearing and comfortable [facility] Head:?normal to inspection Ears:?hearing grossly normal bilaterally Nose:?external nose normal Face and sinus:?normal facial exam and sinuses nontender Mouth:?oral mucosae normal Throat:?posterior oropharynx normal Eyes General:?appearance normal, both eyes and all related structures Neck Neck:?normal visual inspection and no lymphadenopathy noted Resp Effort & Inspection:?normal respiratory effort Auscultation:?clear to auscultation bilaterally Cardio Rate:?regular rate Rhythm:?regular rhythm Musculoskeletal Left hip has an small abrasion that patient has applied a couple of Steri-Strips to. No signs of infection. Appears to be healing well. There is some bruising and tenderness to palpation surrounding the abrasion. No deformities noted. Patient is able to bear weight and walk. Strength and sensation is intact. There is full range of motion. Patient is neurovascularly intact. Neuro General:?patient alert, patient awake and patient oriented x3 Initial Vital Signs Initial Vital Signs: Vital Signs Temperature 98.4 F 01/18/23 14:21 Pulse Rate 75 01/18/23 14:21 Respiratory Rate 17 01/18/23 14:21 Blood Pressure 132/81 01/18/23 14:21 Pulse Oximetry 99 01/18/23 14:21 Oxygen Delivery Method Room Air 01/18/23 14:21 <DO Yonatan Barbosa Last Filed: 01/18/23 15:50> Initial Vital Signs Initial Vital Signs: Vital Signs Temperature 98.4 F 01/18/23 14:21 Pulse Rate 75 01/18/23 14:21 Respiratory Rate 17 01/18/23 14:21 Blood Pressure 132/81 01/18/23 14:21 Pulse Oximetry 99 01/18/23 14:21 Oxygen Delivery Method Room Air 01/18/23 14:21 Course <Tyler Alvarado PA-C - Last Filed: 01/18/23 15:40> Orders Ordered: ED Orders 01/18/23 14:27 XR hip w pel if done LT 2V Stat Discontinued Medications Diphtheria/Tetanus/Acell Pertussis (Tet,Diph,Pertuss(Acell),Vac/Pf 0.5 Ml Syringe) 0.5 ml IM .ONCE ONE Stop: 01/18/23 14:57 Last Admin: 01/18/23 15:15 Dose: 0.5 ml Documented By: NL Vital Signs Vital signs: Vital Signs - 8 hr 01/18/23 14:21 01/18/23 15:29 Temperature 98.4 F Pulse Rate 75 64 Respiratory Rate 17 18 Blood Pressure 132/81 156/88 H Pulse Oximetry 99 96 Oxygen Delivery Method Room Air Room Air <DO Yonatan Barbosa Last Filed: 01/18/23 15:50> Orders Ordered: ED Orders 01/18/23 14:27 XR hip w pel if done LT 2V Stat Discontinued Medications Diphtheria/Tetanus/Acell Pertussis (Tet,Diph,Pertuss(Acell),Vac/Pf 0.5 Ml Syringe) 0.5 ml IM .ONCE ONE Stop: 01/18/23 14:57 Last Admin: 01/18/23 15:15 Dose: 0.5 ml Documented By: MARGARITO Vital Signs Vital signs: Vital Signs - 8 hr 01/18/23 14:21 01/18/23 15:29 Temperature 98.4 F Pulse Rate 75 64 Respiratory Rate 17 18 Blood Pressure 132/81 156/88 H Pulse Oximetry 99 96 Oxygen Delivery Method Room Air Room Air MDM - Extremity Injury (Lower) <Tyler Alvarado PA-C - Last Filed: 01/18/23 15:40> MDM Narrative Medical decision making narrative: 52-year-old female presents to the ED status post a left hip injury sustained 4 days prior to arrival. Concern for fracture/dislocation versus abrasion versus musculoskeletal sprain/strain versus other. X-ray was obtained with no acute findings. The abrasion seems to be healing well with no signs of infection. Patient's Tdap was 9 years ago and was updated today. Patient's symptoms most consistent with a musculoskeletal sprain/strain. Recommend supportive care with heat packs, ibuprofen, Tylenol. Recommend follow-up with PCP as soon as possible. ED return precautions discussed with patient. Patient verbalized understanding. Medical records reviewed: Yes Discharge Plan Departure Patient Disposition: Home Clinical Impression: Hip pain Instructions: DI for Hip Pain Activity Restrictions/Additional Instructions: You were evaluated in the ED today for a left hip injury. Your x-ray did not show any fractures or dislocations. It appears that the abrasion is healing well without any signs of infection. It appears that your symptoms are most consistent with a musculoskeletal sprain/strain. You may continue taking ibuprofen and Tylenol. You may apply heat packs on the injury for comfort. Your tetanus was updated today and should be good for the next 10 years. Please follow-up with your PCP as soon as possible. Please return to the ED if you have worsening symptoms or if you note any signs of infection including worsening redness, warmth, swelling, pain, discharge. Prescriptions: No Action hydroxyzine HCl 25 mg tablet 25 mg PO TID PRN (Reason: anxiety) Qty: 90 0RF acyclovir 200 mg Capsule 200 mg PO PRN PRN (Reason: rash) Referrals: Ronnie Quiñones ARNP [Primary Care Provider] - Stand Alone Forms: Patient Portal/API <Donovan Grewal DO - Last Filed: 01/18/23 15:50> Cosign ED Attending Cosignature Attestation: Dr Grewal Co-Sign Statement: I was available for consultation during this patient's emergency department visit. This chart is signed by myself for administrative purposes only. I did not have direct contact with this patient during this visit. They were seen independently by the APC.
[2023-01-18 15:29] VITALS: BP 156/88; PULSE 64; RESP 18; O2SAT 96
== END 2023-01-18 15:29 | disposition home or self-care (01) ==
PROVIDERS: Emergency Provider Student in an Organized Health Care Education/Training Program; PCP Registered Nurse Diabetes Educator
DX: S70.212A Abrasion, left hip, initial encounter (principal); W18.30XA Fall on same level, unspecified, initial encounter; Z23 Encounter for immunization
CPT/HCPCS: 73502; 90471; 99283; 90715

== ENCOUNTER 2023-03-11 11:15 | Outpatient (RCR) | payer OTHER, MEDICAID, SELFPAY ==
--- NOTE | 2023-03-09 17:57 | PT.OIE ---
Current Diagnoses Pain in left hip (03/09/23) Past Medical History (Last Reviewed 01/18/23 @ 15:33 by Tyler Alvarado PA-C) Blepharospasm of both eyes Cervical strain Colon cancer screening Impacted cerumen, right ear Mass Mass of shoulder region Weight gain Well adult Visit Care Team Role Provider Type [facility] Provider Advanced Exchange Floor Manager Primary Care Provider Specialty: Medical Address: [address] [place] [address], [id number] Email: [email or web address] Broderick Mensah DO Attending Provider Physician Referring Provider Specialty: Family Practice Address: [address] [place] [address], [address], [place], [address] Email: [email or web address] Physical Therapy Initial Evaluation PT-OP-A Visit Information Start: 03/09/23 17:35 Freq: Status: Active Protocol: Document 03/09/23 15:20 DCW (Rec: 03/09/23 17:45 [facility] [id number]) Out-Patient Physical Therapy Visit Information Visit Information Visit Type Initial Evaluation Visit Start Time 15:20 Visit Stop Time 16:00 Total Visit Minutes 40 Visit Number 1 Number of PERSONAL LINES INSURANCE ADVISOR Visits 0 Evaluation Information Evaluation Date 03/09/23 PT-OP-B Current Condition Start: 03/09/23 17:35 Freq: Status: Active Protocol: Document 03/09/23 15:20 DCW (Rec: 03/09/23 17:45 [facility] [id number]) Current Condition History of Current Condition Current Complaints Posterior hip/low back pain History of Current Condition Pt is a 52 year old female presenting with a multi-month history of posterior left hip pain. Pt admits her pain is much better now than it had been when she made this appointment, but wanted to come in to make she she got the best advice on how to support healing it. 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 Recently had a fall and landed on her left hip, which started her pain. Reports she was told by a chiropractor that her hips are out. Her left posterior hip had been bothering her more when she over does something, or pushes it too far, but saw an osteopath yesterday, and is feeling much better today. 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 PT-OP-C Subjective Start: 03/09/23 17:35 Freq: Status: Active Protocol: Document 03/09/23 15:20 DCW (Rec: 03/09/23 17:45 DCW [id number]) OP-PT Subjective Patient Comments Patient Comments Sometimes it feels more like a sciatic nerve pain, but I've learned to make sure when I'm stretching, its a muscle stretch, not a nerve stretch. PT-OP-F Manual Assessment Start: 03/09/23 17:35 Freq: Status: Active Protocol: Document 03/09/23 15:20 DCW (Rec: 03/09/23 17:56 DCW [id number]) Manual Assessments Soft Tissue Assessment Soft Tissue Mobility Assessment Moderate tone along left piriformis, tenderness to palpation 2/4: pain with wincing Joint Mobility Assessment Joint Mobility Assessment right elevated ASIS PT-OP-M Strength Start: 03/09/23 17:35 Freq: Status: Active Protocol: Document 03/09/23 15:20 DCW (Rec: 03/09/23 17:56 DCW [id number]) Hip Strength Hip Manual Muscle Testing Right Flexion (L2) 5 Normal Abduction 5 Normal Adduction 5 Normal External Rotation 5 Normal Internal Rotation 5 Normal Left Flexion (L2) 5 Normal Abduction 5 Normal Adduction 4+ Good+ External Rotation 5 Normal Internal Rotation 5 Normal PT-OP-Q Treatments Start: 03/09/23 17:35 Freq: Status: Active Protocol: Document 03/09/23 15:20 DCW (Rec: 03/09/23 17:45 DCW [id number]) Therapeutic Exercises Supine Exercises Piriformis Supine Exercise Name Knee to opposite shoulder, figure-4 Side left Sitting Exercises Piriformis Sitting Exercise Name Seated figure-4, Self STM /c tennis ball Side left Other Exercises Piriformis Other Exercise Name Half-standing pigeon stretch Side left PT-OP-T Assessment and Plan Start: 03/09/23 17:35 Freq: Status: Active Protocol: Document 03/09/23 15:20 DCW (Rec: 03/09/23 17:56 [facility] [id number]) Physical Therapy Assessment Rehab Potential Rehabilitation Potential Excellent Evaluation Complexity Number of Personal Factors/Comorbidities 0 Number of Body Systems Impaired 1-2 Clinical Presentation at Evaluation Stable Impairments Impairments Functional Activities, Functional Mobility,Soft Tissue Mobility,Tone Goals Two Impairment Pt experiences left hip pain when bending over during yoga class Corporate Quality Engineer Goal (LTG) Pt to improve hip mobility/ piriformis tone enough to demonstrate ability to perform usual yoga positions with no limitations in left hip mobility. LTG Duration 04/08/23 One Impairment Pt does not have an appropriate home exercise program Short Term Goal (STG) Pt to be independent and compliant with an appropriate HEP STG Duration 03/25/23 Assessment Summary Assessment Pt presents with signs and symptoms consistent with fairly mild piriformis syndrome. Pt largely asymptomatic by the time she arrived for her evaluation, however still somewhat tender to palpation along left piriformis with noticeable increase in tone. Pt responded very well to stretches provided, felt an immediate difference in hip mobility. Due to pt's history as a instructor knitting and general activity level, pt will likely be able to implement HEP into usual routine and transition fairly easily to an independent program. Will likely benefit from return to therapy for 1-2 more visits for guidance and instruction, expect to discharge shortly afterward if everything continues to progress as expected. Physical Therapy Plan Frequency and Duration Frequency of Treatment 2x/Week Plan of Care Start Date 03/09/23 Plan of Care End Date 04/08/23 Therapeutic Interventions Therapeutic Interventions Home Exercise Program,Joint Mobilizations,Manual Therapy, Patient/Caregiver Education, Self-Care/Home Management,Soft Tissue Mobilization, Therapeutic Activities, Therapeutic Exercises Next Visit Focus/Plan Next Note Type Treatment Note Next Visit Plan Tone management, stretching, STM.
--- NOTE | 2023-03-09 17:57 | PT.OPPOC ---
Physical, Occupational & Speech Therapy At [facility] Current Diagnoses Pain in left hip (03/09/23) Visit Care Team Role Provider Type [facility] Provider Advanced Superintendent Tests Primary Care Provider Specialty: Medical Address: [address] [place] [address], [id number] Email: [email or web address] Broderick Mensah DO Attending Provider Physician Referring Provider Specialty: Family Practice Address: [address] [place] [address], [address], [place], [address] Email: [email or web address] Plan Of Care PT-OP-T Assessment and Plan Start: 03/09/23 17:35 Freq: Status: Active Protocol: Document 03/09/23 15:20 DCW (Rec: 03/09/23 17:56 DCW [id number]) Physical Therapy Assessment Rehab Potential Rehabilitation Potential Excellent Evaluation Complexity Number of Personal Factors/Comorbidities 0 Number of Body Systems Impaired 1-2 Clinical Presentation at Evaluation Stable Impairments Impairments Functional Activities, Functional Mobility,Soft Tissue Mobility,Tone Goals Two Impairment Pt experiences left hip pain when bending over during yoga class Longterm Goal (LTG) Pt to improve hip mobility/ piriformis tone enough to demonstrate ability to perform usual yoga positions with no limitations in left hip mobility. LTG Duration 04/08/23 One Impairment Pt does not have an appropriate home exercise program Short Term Goal (STG) Pt to be independent and compliant with an appropriate HEP STG Duration 03/25/23 Assessment Summary Assessment Pt presents with signs and symptoms consistent with fairly mild piriformis syndrome. Pt largely asymptomatic by the time she arrived for her evaluation, however still somewhat tender to palpation along left piriformis with noticeable increase in tone. Pt responded very well to stretches provided, felt an immediate difference in hip mobility. 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 Will likely benefit from return to therapy for 1-2 more visits for guidance and instruction, expect to discharge shortly afterward if everything continues to progress as expected. Physical Therapy Plan Frequency and Duration Frequency of Treatment 2x/Week Plan of Care Start Date 03/09/23 Plan of Care End Date 04/08/23 Therapeutic Interventions Therapeutic Interventions Home Exercise Program,Joint Mobilizations,Manual Therapy, Patient/Caregiver Education, Self-Care/Home Management,Soft Tissue Mobilization, Therapeutic Activities, Therapeutic Exercises Next Visit Focus/Plan Next Note Type Treatment Note Next Visit Plan Tone management, stretching, STM. Plan of Care Dates Plan of Care Start Date 03/09/23 Plan of Care End Date 04/08/23 Electronically Signed by: Zev Garza, PT 03/09/23 6016 If you are in agreement with this Plan of Care, please return a signed and dated copy. I have reviewed this Plan of Care and certify that the skilled therapy services above are required to meet the patient?s needs. Physician Signature Date Printed Name and Credentials Clinical Instructor Signature Printed Name and Credentials
--- NOTE | 2023-03-11 11:48 | PT.OTN ---
Current Diagnoses Pain in left hip (03/11/23) Physical Therapy Treatment Note PT-OP-A Visit Information Start: 03/09/23 17:35 Freq: Status: Active Protocol: Document 03/11/23 11:20 DCW (Rec: 03/11/23 11:47 DCW [id number]) Out-Patient Physical Therapy Visit Information Visit Information Visit Type Discharge Summary Visit Start Time 11:20 Visit Stop Time 11:45 Total Visit Minutes 25 Visit Number 2 Number of HOSE HANDLER Visits 0 Evaluation Information Evaluation Date 03/09/23 PT-OP-B Current Condition Start: 03/09/23 17:35 Freq: Status: Active Protocol: Document 03/09/23 15:20 DCW (Rec: 03/09/23 17:45 DCW [id number]) Current Condition History of Current Condition Current Complaints Posterior hip/low back pain History of Current Condition Pt is a 52 year old female presenting with a multi-month history of posterior left hip pain. Pt admits her pain is much better now than it had been when she made this appointment, but wanted to come in to make she she got the best advice on how to support healing it. 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 Recently had a fall and landed on her left hip, which started her pain. Reports she was told by a chiropractor that her hips are out. Her left posterior hip had been bothering her more when she over does something, or pushes it too far, but saw an osteopath yesterday, and is feeling much better today. 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 PT-OP-C Subjective Start: 03/09/23 17:35 Freq: Status: Active Protocol: Document 03/11/23 11:20 DCW (Rec: 03/11/23 11:47 DCW [id number]) OP-PT Subjective Patient Comments Patient Comments Pt reports she has been feeling quite a bit better, admits she hasn't done much of the exercises, except for in yoga. Noticing more ROM when bending over. PT-OP-F Manual Assessment Start: 03/09/23 17:35 Freq: Status: Active Protocol: Document 03/09/23 15:20 DCW (Rec: 03/09/23 17:56 DCW [id number]) Manual Assessments Soft Tissue Assessment Soft Tissue Mobility Assessment Moderate tone along left piriformis, tenderness to palpation 2/4: pain with wincing Joint Mobility Assessment Joint Mobility Assessment right elevated ASIS PT-OP-M Strength Start: 03/09/23 17:35 Freq: Status: Active Protocol: Document 03/09/23 15:20 DCW (Rec: 03/09/23 17:56 DCW [id number]) Hip Strength Hip Manual Muscle Testing Right Flexion (L2) 5 Normal Abduction 5 Normal Adduction 5 Normal External Rotation 5 Normal Internal Rotation 5 Normal Left Flexion (L2) 5 Normal Abduction 5 Normal Adduction 4+ Good+ External Rotation 5 Normal Internal Rotation 5 Normal PT-OP-Q Treatments Start: 03/09/23 17:35 Freq: Status: Active Protocol: Document 03/11/23 11:20 DCW (Rec: 03/11/23 11:47 DCW [id number]) Therapeutic Exercises Supine Exercises Piriformis Supine Exercise Name Knee to opposite shoulder Side left Sidelying Exercises Reverse Clamshell Sidelying Exercise Name Reverse Clamshell Side bilateral Resistance Green Clamshell Sidelying Exercise Name Clamshell Side bilateral Resistance Green Sitting Exercises Piriformis Sitting Exercise Name Seated figure-4 Side bilateral Manual Therapy Treatment Soft Tissue Mobilization Piriformis Body Location L Piriformis Mobilization Type Sustained Pressure,Trigger Point Release Intensity/Depth Moderate Body Position Sidelying PT-OP-T Assessment and Plan Start: 03/09/23 17:35 Freq: Status: Active Protocol: Document 03/11/23 11:20 DCW (Rec: 03/11/23 11:47 DCW [id number]) Physical Therapy Assessment Impairments Impairments Functional Activities, Functional Mobility,Soft Tissue Mobility,Tone Goals Two Impairment Pt experiences left hip pain when bending over during yoga class Guest History Clerk Goal (LTG) Pt to improve hip mobility/ piriformis tone enough to demonstrate ability to perform usual yoga positions with no limitations in left hip mobility. LTG Duration 04/08/23 One Impairment Pt does not have an appropriate home exercise program Short Term Goal (STG) Pt to be independent and compliant with an appropriate HEP STG Duration Met Assessment Summary Assessment Pt feeling much better already , no real lingering complaints . Demonstrates excellent understanding of HEP, understands need to continue with stretching and strengthening, but feels confident she can perform independently. Appropriate for discharge from skilled therapy at this time. Physical Therapy Plan Frequency and Duration Frequency of Treatment 2x/Week Plan of Care Start Date 03/09/23 Plan of Care End Date 04/08/23 Therapeutic Interventions Therapeutic Interventions Home Exercise Program,Joint Mobilizations,Manual Therapy, Patient/Caregiver Education, Self-Care/Home Management,Soft Tissue Mobilization, Therapeutic Activities, Therapeutic Exercises Discharge Physical Therapy Discharge Reasons Goals Met Next Visit Focus/Plan Next Note Type Treatment Note
== END 2023-03-14 10:28 | disposition home or self-care (01) ==
LOC: PHYS 11:15
PROVIDERS: Family Provider Registered Nurse Diabetes Educator; PCP Registered Nurse Diabetes Educator; Referring Provider Family Medicine; Visit Provider Family Medicine
DX: M25.552 Pain in left hip (principal)
CPT/HCPCS: 97110; 97140; 97161

== ENCOUNTER → 2023-06-22 15:32 | Outpatient (CLI) | payer OTHER, MEDICAID, SELFPAY ==
[2023-06-23 18:39] LABS: Fecal Immunochemical Test Negative (Negative)
== END ==
PROVIDERS: Family Provider Registered Nurse Diabetes Educator; PCP Registered Nurse Diabetes Educator; Referring Provider Registered Nurse Diabetes Educator; Visit Provider Registered Nurse Diabetes Educator
DX: Z12.11 Encounter for screening for malignant neoplasm of colon (principal)
CPT/HCPCS: 82274

== ENCOUNTER → 2023-07-25 15:03 | Outpatient (CLI) | payer OTHER, MEDICAID, SELFPAY ==
--- NOTE | 2023-07-25 15:05 | DI.MG.S_ITS ---
BILATERAL DIGITAL SCREENING MAMMOGRAM 3D/2D WITH CAD: 07/25/2023 CLINICAL: Routine screening. Family history of breast cancer. Comparison is made to exams dated: 06/21/2022 mammogram, 06/11/2021 mammogram, and 05/09/2020 mammogram - [facility]. Both breasts are heterogeneously dense, which may obscure small masses (category c / 51-75% glandular tissue). Current study was also evaluated with a Computer Aided Detection (CAD) system. No significant masses, calcifications, or other findings are seen in either breast. There has been no significant interval change. IMPRESSION: NEGATIVE There is no mammographic evidence of malignancy. A 1 year screening mammogram is recommended. Based on the Tyrer Cuzick model (a risk assessment model) the patient's lifetime risk is 12.3% and her 10 year risk is 3.8%. According to the ACR, ACS, and NCCN guidelines, an annual breast MRI exam along with mammogram is recommended if the patient's lifetime risk is 20% or greater. This exam was interpreted at Station ID: [id number]. NOTE: For mammograms, a report in lay terms will be sent to the patient. Approximately 15% of breast malignancies will not be visualized mammographically. In the management of a palpable breast mass, a negative mammogram must not discourage biopsy of a clinically suspicious lesion. Electronically Signed By: Will lara/sandhya:07/26/2023 11:47:11 letter sent: Normal Exam ACR BI-RADS Category 1: Negative [id number]
== END ==
PROVIDERS: Family Provider Registered Nurse Diabetes Educator; PCP Registered Nurse Diabetes Educator; Referring Provider Registered Nurse Diabetes Educator; Visit Provider Registered Nurse Diabetes Educator
DX: Z12.31 Encounter for screening mammogram for malignant neoplasm of breast (principal); Z80.3 Family history of malignant neoplasm of breast; R92.333 Mammographic heterogeneous density, bilateral breasts
CPT/HCPCS: 77063; 77067

== ENCOUNTER → 2024-01-27 07:31 | Outpatient (CLI) | payer OTHER, MEDICAID, SELFPAY ==
[2024-01-27 08:24] LABS: Hematocrit 40.7 % (36-46); Hemoglobin 13.7 g/dL (12.0-16.0); Mean Corpuscular HGB Conc 33.6 % (30-36); Mean Corpuscular Hemoglobin 30.9 PG (26-34); Mean Corpuscular Volume 91.8 fL (80-100); Platelet Count 341 X10^3/uL (150-400); Red Blood Cell Count 4.43 X10^6/uL (4.0-5.2); Red Cell Distribution Width 13.5 % (11.6-14.8); White Blood Cell Count 5.4 X10^3/uL (4.5-11.0)
[2024-01-27 08:46] LABS: Alanine Aminotransferase 15 IU/L (<35); Albumin 4.9 g/dL (3.5-5.0); Albumin Globulin Ratio 1.9 (1.0-2.8); Alkaline Phosphatase 54 U/L (38-126); Aspartate Aminotransferase 33 IU/L (14-36); BUN Creatinine Ratio 27.4 (6-22); Bilirubin Total 0.8 mg/dL (0.2-1.3); Blood Urea Nitrogen 20 mg/dL (7-17); Calcium 10.1 mg/dL (8.4-10.2); Carbon Dioxide 29 mmol/L (22-32); Chloride 100 mmol/L (98-107); Cholesterol 232 mg/dL (140-199); Estimated Glomerular Filt Rate > 60 mL/min (>60); Globulin 2.6 g/dL (1.7-4.1); Glucose 79 mg/dL (70-100); HDL Cholesterol 89 mg/dL (40-60); HEMOLYSIS < 15 (0-50); LDL Cholesterol Calculated 129 mg/dL (<100); Potassium 3.9 mmol/L (3.4-5.1); Sodium 136 mmol/L (137-145); Total Protein 7.5 g/dL (6.3-8.2); Triglycerides 68 mg/dL (35-150)
[2024-01-27 09:14] LABS: TSH w/ Reflex to FT4 1.33 uIU/mL (0.47-4.68)
== END ==
PROVIDERS: Family Provider Registered Nurse Diabetes Educator; PCP Registered Nurse Diabetes Educator; Referring Provider Registered Nurse Diabetes Educator; Visit Provider Registered Nurse Diabetes Educator
DX: R25.2 Cramp and spasm (principal)
CPT/HCPCS: 36415; 80053; 80061; 83735; 84443; 85027

== ENCOUNTER 2024-06-20 08:09 | Emergency (ER) | payer OTHER, SELFPAY ==
[2024-06-20 08:28] VITALS: BP 135/77; PULSE 94; RESP 14; TEMP 37.4; O2SAT 97; BMI 20.7
--- NOTE | 2024-06-20 08:28 | ED.LOWEXIN ---
HPI - Extremity Injury (Lower) General Chief Complaint: Extremity Injury, Lower Stated Complaint: Twisted her right foot and knee Time Seen by Provider: 06/20/24 08:20 History of Present Illness HPI Narrative: Patient is a 53-year-old female with neurologic disorder presenting today with right knee pain. She reports that sometimes she was a little unstable she was in the process of moving. Yesterday she was on a step stool and she twisted her right knee. It does hurt to bear weight. She has not had any Tylenol or ibuprofen. Sitting it feels okay. No hip injury or ankle injury. Related Data Home Medications Medication Instructions Recorded Confirmed acyclovir 200 mg capsule 200 mg PO PRN PRN rash 01/18/23 03/29/24 Previous Rx's Medication Instructions Recorded hydroxyzine HCl 25 mg tablet 25 mg PO TID PRN anxiety #90 tabs 08/29/23 estradiol 0.5 mg tablet 0.5 mg PO DAILY #60 tabs 02/28/24 progesterone micronized 100 mg 100 mg PO DAILY #60 caps 02/28/24 capsule erythromycin 5 mg/gram (0.5 %) eye 0.5 inch ophthalmic (eye) Q6H #3.5 03/30/24 ointment grams Allergies Allergy/AdvReac Type Severity Reaction Status Date / Time No Known Drug Allergies Allergy Verified 03/29/24 14:10 Patient History Medical History Dyslipidemia Anxiety Blepharospasm of both eyes Impacted cerumen, right ear Well adult Cervical strain Mass of shoulder region Mass Colon cancer screening Weight gain Social History household members: significant other Smoking Status: Former smoker Tobacco: How many years used: 1 alcohol intake: former substance use type: does not use Smoking Status: Former smoker alcohol intake frequency: 0-2 drinks per day Exam Initial Vital Signs Initial Vital Signs: Vital Signs Temperature 99.4 F 06/20/24 08:28 Pulse Rate 94 H 06/20/24 08:28 Respiratory Rate 14 06/20/24 08:28 Blood Pressure 135/77 06/20/24 08:28 Pulse Oximetry 97 06/20/24 08:28 Oxygen Delivery Method Room Air 06/20/24 08:28 GENERAL: Well-appearing, well-nourished and in no acute distress. CARDIOVASCULAR: peripheral pulses in tact, cap refill <2 sec RESPIRATORY: No respiratory distress, speaks in full sentences without difficulty EXTREMITIES: Normal range of motion, no clubbing or edema. Neurovascularly intact Right lower extremity knee is stable no significant swelling tender laterally no ankle pain or swelling. NEUROLOGICAL: Cranial nerves II through XII grossly intact. Normal gait and speech. SKIN: Warm, dry, no petechiae, no rashes or lesions. Course Orders Ordered: ED Orders 06/20/24 08:27 XR knee RT 3V Stat Discontinued Medications Ibuprofen (Ibuprofen 400 Mg Tablet) 800 mg PO NOW ONE Stop: 06/20/24 08:32 Last Admin: 06/20/24 08:54 Dose: 800 mg Documented By: NICKY Vital Signs Vital signs: Vital Signs - 8 hr 06/20/24 08:28 06/20/24 10:08 Temperature 99.4 F 98 F Pulse Rate 94 H 94 H Respiratory Rate 14 20 Blood Pressure 135/77 130/74 Pulse Oximetry 97 100 Oxygen Delivery Method Room Air Room Air MDM - Extremity Injury (Lower) Imaging Data Extremity x-ray #1: Radiologist's Impression: PROCEDURE: XR KNEE RT 3V INDICATIONS: fall TECHNIQUE: 3 views of the knee were acquired. COMPARISON: None. FINDINGS: Bones: No fractures or dislocations. No suspicious bony lesions. Soft tissues: No joint effusion. No suspicious soft tissue calcifications. IMPRESSION: No acute right knee fracture or dislocation. No significant joint effusion. Dictated by: Bernardino Patel M.D. on 06/20/2024 at 9:03 [facility] Narrative Medical decision making narrative: Patient is a 53-year-old female presenting today with right knee injury. Unable to bear weight x-ray has been reviewed and negative. No significant swelling noted. Minor pain laterally. Consistent with knee sprain. She was given Motrin here in the ED along with crutches. Supportive care only. Discharge Plan Departure Patient Disposition: Home Clinical Impression: Right knee sprain Instructions: DI for Knee Sprain Activity Restrictions/Additional Instructions: *You have been diagnosed with right knee sprain *What to do: At this time increase activity as tolerated. Wear knee brace while active during the day may even need it at night while sleeping. Use crutches as needed. May weightbear as tolerated. Elevate and ice often If pain and symptoms do not improve may require outpatient MRI with your primary care provider *Continue to take medications as directed Motrin 600 mg every 6 hours for [id number] pain Tylenol 1000 mg every 6 hours for nloi-xk-fvtjnchy pain *Follow up with your primary care provider in 2-3 days or call [phone] *Return to ER if you should have increasing pain redness fever [or] any new, worsening or concerning symptoms Prescriptions: No Action erythromycin 5 mg/gram (0.5 %) ointment 0.5 inch ophthalmic (eye) Q6H Qty: 3.5 0RF estradiol 0.5 mg tablet 0.5 mg PO DAILY Qty: 60 3RF progesterone micronized 100 mg capsule 100 mg PO DAILY Qty: 60 3RF hydroxyzine HCl 25 mg tablet 25 mg PO TID PRN (Reason: anxiety) Qty: 90 1RF acyclovir 200 mg Capsule 200 mg PO PRN PRN (Reason: rash) Referrals: Ronnie Quiñones ARNP [Primary Care Provider] - Stand Alone Forms: Patient Portal/API/Survey
[2024-06-20] MEDS: IBUPROFEN 400 MG TABLET 800 MG PO (08:54)
[2024-06-20 10:08] VITALS: BP 130/74; PULSE 94; RESP 20; TEMP 36.6; O2SAT 100
== END 2024-06-20 10:09 | disposition home or self-care (01) ==
PROVIDERS: Emergency Provider Emergency Medicine; Family Provider Registered Nurse Diabetes Educator; PCP Registered Nurse Diabetes Educator
DX: S83.91XA Sprain of unspecified site of right knee, initial encounter (principal); X50.1XXA Overexertion from prolonged static or awkward postures, initial encounter
CPT/HCPCS: 73562; 99283

== ENCOUNTER 2024-11-16 17:53 | Emergency (ER) | payer OTHER, SELFPAY ==
[2024-11-16 18:04] VITALS: BP 127/68; PULSE 100; RESP 20; TEMP 37; O2SAT 98; BMI 19.3
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
[2024-11-16 23:15] VITALS: PULSE 85; O2SAT 98
[2024-11-16 23:30] VITALS: BP 167/86; PULSE 74; RESP 18; O2SAT 98
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
== END 2024-11-17 00:24 | disposition home or self-care (01) ==
PROVIDERS: Emergency Provider Emergency Medicine; Family Provider Registered Nurse Diabetes Educator; PCP Registered Nurse Diabetes Educator
DX: S16.1XXA Strain of muscle, fascia and tendon at neck level, initial encounter (principal); S20.219A Contusion of unspecified front wall of thorax, initial encounter; M54.2 Cervicalgia; R51.9 Headache, unspecified; G89.29 Other chronic pain; V43.52XA Car driver injured in collision with other type car in traffic accident, initial encounter; Y92.410 Unspecified street and highway as the place of occurrence of the external cause
CPT/HCPCS: 70450; 71111; 72125; 99283; 99284

== ENCOUNTER 2024-11-20 14:30 | Outpatient (RCR) | payer OTHER, SELFPAY ==
--- NOTE | 2024-10-05 16:12 | PT.OIE ---
Current Diagnoses Cervicalgia (10/05/24) Past Medical History (Last Updated 09/02/24 @ 10:04 by PRAFUL River) Adjustment disorder with mixed anxiety and depressed mood Alcoholism in remission Anxiety Blepharospasm of both eyes Cervical strain Colon cancer screening Dyslipidemia Genital HSV Impacted cerumen, right ear Mass Mass of shoulder region Recurrent cold sores Weight gain Well adult Visit Care Team Role Provider Type PRAFUL River Attending Provider Advanced Presales Consultant Family Provider Primary Care Provider Referring Provider Specialty: Medical Address: [address] [place] [address], [facility] Email: [email or web address] Physical Therapy Initial Evaluation PT-OP-A Visit Information Start: 10/05/24 09:50 Freq: Status: Active Protocol: Document 10/05/24 09:50 SET UP PERSON (Rec: 10/05/24 11:20 SET UP PERSON Laptop) Out-Patient Physical Therapy Visit Information Visit Information Visit Type Initial Evaluation Visit Start Time 09:50 Visit Stop Time 10:52 Visit Number 1 Number of CHEMISTRY ASSOCIATE Visits 0 Evaluation Information Evaluation Date 10/05/24 Precautions Precautions N/A PT-OP-B Current Condition Start: 10/05/24 09:50 Freq: Status: Active Protocol: Document 10/05/24 09:50 SET UP PERSON (Rec: 10/05/24 11:20 SET UP PERSON Laptop) Current Condition History of Current Condition Onset Date ~1 year ago Current Complaints B neck decreased ROM and tightness and pain History of Current Pt presents to PT evaluation reporting onset of neck Condition pain and stiffness starting about a year ago without known cause and has progressively gotten worse. 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 Pt feels most limited during yoga classes, while driving and having to turn body instead of just neck to look side to side. Pt reports her PT friend has helped her one time with massage, posture education, and stretching and that helped a lot, especially of her SCM. Has been taking tumeric to reduce inflammation instead of ibuprofen. Goes to chiropractor 1x/month. 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 Pt also discloses that she believes in a holistic medicine and prefers a natural remedy approach to achieve wellness. Treatment Goals Patient/Caregiver For improved neck ROM and learning about my body Goals PT-OP-C Subjective Start: 10/05/24 09:50 Freq: Status: Active Protocol: Document 10/05/24 09:50 SET UP PERSON (Rec: 10/05/24 11:20 SET UP PERSON Laptop) Patient Questionnaires Neck Disability Index NDI Score 26% OP-PT Pain Assessment Comments Pain Comments 3/10 pain headache, reports from tight SCM PT-OP-F Manual Assessment Start: 10/05/24 09:50 Freq: Status: Active Protocol: Document 10/05/24 09:50 SET UP PERSON (Rec: 10/05/24 11:20 SET UP PERSON Laptop) Manual Assessments Soft Tissue Assessment Soft Tissue Mobility Decreased soft tissue mobility to suboccipitals, upper Assessment traps, levator scaps, rhomboids, supraspinatus, SCM bilaterally but R impairment >L Joint Mobility Assessment Joint Mobility Decreased Post to Ant mobility at C5-C2 Assessment PT-OP-J Posture/Palpation/Skin Start: 10/05/24 09:50 Freq: Status: Active Protocol: Document 10/05/24 09:50 SET UP PERSON (Rec: 10/05/24 11:20 SET UP PERSON Laptop) Posture Evaluation Comments Posture Comments Sitting: forward head posture, slight B forward rounded GH R>L, R shoulder slightly higher than L PT-OP-K Range of Motion Start: 10/05/24 09:50 Freq: Status: Active Protocol: Document 10/05/24 09:50 SET UP PERSON (Rec: 10/05/24 11:20 SET UP PERSON Laptop) Cervical Spine Range of Motion Cervical Spine Percentage Flexion 100 Extension 75 Rotation Left 80 Rotation Right 90 Lateral Flexion Left 90 Lateral Flexion 75 Right ROM Limitations Soft Tissue Tightness Comments ext hinging at C6 Shoulder Goniometric Range of Motion Shoulder ROM Limitations Comments B shoulder flex/abd WNL R ER functional reach middle finger to T6 L ER functional reach middle finger to T4 PT-OP-M Strength Start: 10/05/24 09:50 Freq: Status: Active Protocol: Document 10/05/24 09:50 SET UP PERSON (Rec: 10/05/24 11:20 SET UP PERSON Laptop) Shoulder Strength Shoulder Manual Muscle Testing L Flexion 4+ Good+ Extension 5 Normal Abduction (C5) 4 Good External Rotation 4 Good Internal Rotation 4+ Good+ R Flexion 4+ Good+ Extension 5 Normal Abduction (C5) 4- Good- External Rotation 4 Good Internal Rotation 4- Good- PT-OP-Q Treatments Start: 10/05/24 09:50 Freq: Status: Active Protocol: Document 10/05/24 09:50 SET UP PERSON (Rec: 10/05/24 11:20 SET UP PERSON Laptop) Therapeutic Exercises Sitting Exercises Scap Retraction Sitting Exercise Added to HEP Name Side bilateral Reps/Minutes x10 Chin Tuck Sitting Exercise Added to HEP Name Reps/Minutes x10 Levator Scap Stretch Sitting Exercise Added to HEP Name Side right Reps/Minutes 60s UT Stretch Sitting Exercise Added to HEP Name Side right Reps/Minutes 60s Standing Exercises Shoulder IR Standing Exercise Added to HEP Name Side bilateral Resistance L1 TB Equipment Used towel roll Reps/Minutes x15 Shoulder ER Standing Exercise Added to HEP Name Side bilateral Resistance L1 TB Equipment Used towel roll Reps/Minutes x15 PT-OP-T Assessment and Plan Start: 10/05/24 09:50 Freq: Status: Active Protocol: Document 10/05/24 09:50 SET UP PERSON (Rec: 10/05/24 11:20 SET UP PERSON Laptop) Physical Therapy Assessment Rehab Potential Rehabilitation Good Potential Evaluation Complexity Number of Personal 3 or More Factors/ Comorbidities Number of Body 1-2 Systems Impaired Clinical Stable Presentation at Evaluation Impairments Impairments Activity Tolerance,Functional Activities,Functional Mobility,Pain,Posture,ROM,Soft Tissue Mobility,Strength Goals 4 Impairment NDI Natural Resources Instructor Goal (LTG) Pt will demonstrate improved NDI score from 26% to 5% or lower in order to improve function. LTG Duration 12 weeks 3 Impairment HEP Impairment Compliance of HEP Short Term Goal (STG Pt will demonstrate knowledge and compliance of HEP ) without cueing in order to progress towards goals and maintain ROM/strength/posture after D/C from PT. STG Duration 6 weeks 2 Impairment Strength Impairment B UE Strength Natural Resources Instructor Goal (LTG) Pt will demonstrate improved B shoulder strength to at least 4+/5 to improve function LTG Duration 13 weeks 1 Impairment ROM Impairment Cervical ROM Natural Resources Instructor Goal (LTG) Pt will demonstrate R and L cervical rotation and R and L lateral flexion at 100% AROM without pain to improve function. LTG Duration 13 weeks Assessment Summary Assessment Pt presents with cervical pain, decreased B cervical lateral flexion and rotation R impairments greater than L, decreased shoulder, scapular, and cervical tissue mobility, decreased B shoulder strength, and decreased posture. Pt is highly motivated and will highly benefit from skilled PT intervention to address impairments and improve function in order to return to pain free daily mobility and exercise. Physical Therapy Plan Frequency and Duration Frequency of 1-2x/wk Treatment Duration of 12 treatment (weeks) Plan of Care Start 10/05/24 Plan of Care End 12/28/24 Date Therapeutic Interventions Therapeutic Home Exercise Program,Joint Mobilizations,Manual Interventions Therapy,Patient/Caregiver Education,Soft Tissue Mobilization,Taping,Therapeutic Activities,Therapeutic Exercises Modalities Cold Pack/Ice Massage,Hot Packs,Iontophoresis, Ultrasound Next Visit Focus/Plan Next Note Type Treatment Note Next Visit Plan Review HEP, STM to sub occipitals, cervical muscles, and L rhomboids, assess TA activation, scapular stabilizing exercises, chin tucks
--- NOTE | 2024-10-05 16:13 | PT.OPPOC ---
Physical, Occupational & Speech Therapy At [facility] Current Diagnoses Cervicalgia (10/05/24) Visit Care Team Role Provider Type PRAFUL River Attending Provider Advanced Water/Wastewater Engineer Family Provider Primary Care Provider Referring Provider Specialty: Medical Address: [address] [place] [address], [id number] Email: [email or web address] Plan Of Care PT-OP-B Current Condition Start: 10/05/24 09:50 Freq: Status: Active Protocol: Document 10/05/24 09:50 HOSPITAL ADMISSIONS OFFICER (Rec: 10/05/24 11:20 HOSPITAL ADMISSIONS OFFICER Laptop) Current Condition History of Current Condition Onset Date ~1 year ago Current Complaints B neck decreased ROM and tightness and pain History of Current Pt presents to PT evaluation reporting onset of neck Condition pain and stiffness starting about a year ago without known cause and has progressively gotten worse. 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 Pt feels most limited during yoga classes, while driving and having to turn body instead of just neck to look side to side. Pt reports her PT friend has helped her one time with massage, posture education, and stretching and that helped a lot, especially of her SCM. Has been taking tumeric to reduce inflammation instead of ibuprofen. Goes to chiropractor 1x/month. 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 Pt also discloses that she believes in a holistic medicine and prefers a natural remedy approach to achieve wellness. Treatment Goals Patient/Caregiver For improved neck ROM and learning about my body Goals PT-OP-T Assessment and Plan Start: 10/05/24 09:50 Freq: Status: Active Protocol: Document 10/05/24 09:50 HOSPITAL ADMISSIONS OFFICER (Rec: 10/05/24 11:20 HOSPITAL ADMISSIONS OFFICER Laptop) Physical Therapy Assessment Rehab Potential Rehabilitation Good Potential Evaluation Complexity Number of Personal 3 or More Factors/ Comorbidities Number of Body 1-2 Systems Impaired Clinical Stable Presentation at Evaluation Impairments Impairments Activity Tolerance,Functional Activities,Functional Mobility,Pain,Posture,ROM,Soft Tissue Mobility,Strength Goals 4 Impairment NDI Physician Intensivist Goal (LTG) Pt will demonstrate improved NDI score from 26% to 5% or lower in order to improve function. LTG Duration 12 weeks 3 Impairment HEP Impairment Compliance of HEP Short Term Goal (STG Pt will demonstrate knowledge and compliance of HEP ) without cueing in order to progress towards goals and maintain ROM/strength/posture after D/C from PT. STG Duration 6 weeks 2 Impairment Strength Impairment B UE Strength Physician Intensivist Goal (LTG) Pt will demonstrate improved B shoulder strength to at least 4+/5 to improve function LTG Duration 13 weeks 1 Impairment ROM Impairment Cervical ROM Pen[facility]iary Goal (LTG) Pt will demonstrate R and L cervical rotation and R and L lateral flexion at 100% AROM without pain to improve function. LTG Duration 13 weeks Assessment Summary Assessment Pt presents with cervical pain, decreased B cervical lateral flexion and rotation R impairments greater than L, decreased shoulder, scapular, and cervical tissue mobility, decreased B shoulder strength, and decreased posture. Pt is highly motivated and will highly benefit from skilled PT intervention to address impairments and improve function in order to return to pain free daily mobility and exercise. Physical Therapy Plan Frequency and Duration Frequency of 1-2x/wk Treatment Duration of 12 treatment (weeks) Plan of Care Start 10/05/24 Date Plan of Care End 12/28/24 Date Therapeutic Interventions Therapeutic Home Exercise Program,Joint Mobilizations,Manual Interventions Therapy,Patient/Caregiver Education,Soft Tissue Mobilization,Taping,Therapeutic Activities,Therapeutic Exercises Modalities Cold Pack/Ice Massage,Hot Packs,Iontophoresis, Ultrasound Next Visit Focus/Plan Next Note Type Treatment Note Next Visit Plan Review HEP, STM to sub occipitals, cervical muscles, and L rhomboids, assess TA activation, scapular stabilizing exercises, chin tucks Plan of Care Dates Plan of Care Start Date 10/05/24 Plan of Care End Date 12/28/24 Electronically Signed by: Sandra Hankins, PT 10/06/24 [id number] If you are in agreement with this Plan of Care, please return a signed and dated copy. I have reviewed this Plan of Care and certify that the skilled therapy services above are required to meet the patient?s needs. Physician Signature Date Printed Name and Credentials Clinical Instructor Signature Printed Name and Credentials
--- NOTE | 2024-10-09 16:50 | PT.OTN ---
Current Diagnoses Cervicalgia (10/09/24) Physical Therapy Treatment Note PT-OP-A Visit Information Start: 10/05/24 09:50 Freq: Status: Active Protocol: Document 10/09/24 16:19 NBM (Rec: 10/09/24 16:50 NBM Laptop) Out-Patient Physical Therapy Visit Information Visit Information Visit Type Treatment Note Visit Start Time 13:51 Visit Stop Time 14:37 Visit Number 2 Number of FIELD EDUCATION DIRECTOR Visits 1 Evaluation Information Evaluation Date 10/05/24 Precautions Precautions N/A PT-OP-B Current Condition Start: 10/05/24 09:50 Freq: Status: Active Protocol: Document 10/05/24 09:50 STUDENT ASSISTANT (Rec: 10/05/24 11:20 STUDENT ASSISTANT Laptop) Current Condition History of Current Condition Onset Date ~1 year ago Current Complaints B neck decreased ROM and tightness and pain History of Current Pt presents to PT evaluation reporting onset of neck Condition pain and stiffness starting about a year ago without known cause and has progressively gotten worse. 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 Pt feels most limited during yoga classes, while driving and having to turn body instead of just neck to look side to side. Pt reports her PT friend has helped her one time with massage, posture education, and stretching and that helped a lot, especially of her SCM. Has been taking tumeric to reduce inflammation instead of ibuprofen. Goes to chiropractor 1x/month. 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 Pt also discloses that she believes in a holistic medicine and prefers a natural remedy approach to achieve wellness. Treatment Goals Patient/Caregiver For improved neck ROM and learning about my body Goals PT-OP-C Subjective Start: 10/05/24 09:50 Freq: Status: Active Protocol: Document 10/09/24 16:19 NBM (Rec: 10/09/24 16:50 NBM Laptop) OP-PT Subjective Patient Comments Patient Comments Serene reports her neck is very stiff today. She notices it most with trying to turn her head. She did not make time to do her stretches or exercises over the weekend, but when she did try the stretches, they were painful. PT-OP-F Manual Assessment Start: 10/05/24 09:50 Freq: Status: Active Protocol: Document 10/05/24 09:50 STUDENT ASSISTANT (Rec: 10/05/24 11:20 STUDENT ASSISTANT Laptop) Manual Assessments Soft Tissue Assessment Soft Tissue Mobility Decreased soft tissue mobility to suboccipitals, upper Assessment traps, levator scaps, rhomboids, supraspinatus, SCM bilaterally but R impairment >L Joint Mobility Assessment Joint Mobility Decreased Post to Ant mobility at C5-C2 Assessment PT-OP-J Posture/Palpation/Skin Start: 10/05/24 09:50 Freq: Status: Active Protocol: Document 10/05/24 09:50 STUDENT ASSISTANT (Rec: 10/05/24 11:20 STUDENT ASSISTANT Laptop) Posture Evaluation Comments Posture Comments Sitting: forward head posture, slight B forward rounded GH R>L, R shoulder slightly higher than L PT-OP-K Range of Motion Start: 10/05/24 09:50 Freq: Status: Active Protocol: Document 10/05/24 09:50 STUDENT ASSISTANT (Rec: 10/05/24 11:20 STUDENT ASSISTANT Laptop) Cervical Spine Range of Motion Cervical Spine Percentage Flexion 100 Extension 75 Rotation Left 80 Rotation Right 90 Lateral Flexion Left 90 Lateral Flexion 75 Right ROM Limitations Soft Tissue Tightness Comments ext hinging at C6 Shoulder Goniometric Range of Motion Shoulder ROM Limitations Comments B shoulder flex/abd WNL R ER functional reach middle finger to T6 L ER functional reach middle finger to T4 PT-OP-M Strength Start: 10/05/24 09:50 Freq: Status: Active Protocol: Document 10/05/24 09:50 STUDENT ASSISTANT (Rec: 10/05/24 11:20 STUDENT ASSISTANT Laptop) Shoulder Strength Shoulder Manual Muscle Testing L Flexion 4+ Good+ Extension 5 Normal Abduction (C5) 4 Good External Rotation 4 Good Internal Rotation 4+ Good+ R Flexion 4+ Good+ Extension 5 Normal Abduction (C5) 4- Good- External Rotation 4 Good Internal Rotation 4- Good- PT-OP-Q Treatments Start: 10/05/24 09:50 Freq: Status: Active Protocol: Document 10/09/24 16:19 NBM (Rec: 10/09/24 16:50 NBM Laptop) Therapeutic Exercises Sitting Exercises Scap Retraction Sitting Exercise HEP review Name Side bilateral Reps/Minutes 10 x2 breath cycle hold Comments w/ chin tuck in painfree range Chin Tuck Sitting Exercise HEP review Name Reps/Minutes x5 Comments cues gentle painfree range Levator Scap Stretch Sitting Exercise HEP review Name Side right Reps/Minutes 60s (~8-10 breath cycles) Comments cues no ovepressure, painfree range UT Stretch Sitting Exercise HEP review Name Side bilateral Reps/Minutes 60s (~8-10 breath cycles) Comments cues no ovepressure, painfree range Standing Exercises Shoulder IR Standing Exercise HEP review Name Side bilateral Resistance L1 TB Reps/Minutes x10 Comments initial cues for painfree chin tuck, scap squeeze, breath Shoulder ER Standing Exercise HEP review Name Side bilateral Resistance L1 TB Reps/Minutes x10 Comments initial cues for painfree chin tuck, scap squeeze, breath Manual Therapy Treatment Consent Patient gave verbal Yes consent for manual treatment Soft Tissue Mobilization cervical Body Location R>L UT, LS, paraspinals, suboccipitals, SCM, B Middle Trapezius, Rhomboids Mobilization Type Rolling,Strumming,Other Intensity/Depth Superficial, Moderate Body Position Hooklying Comments LEs supported on bolster. w/ breathwork. Manual pin and stretch to B UT, LS, 30s ea - decreased palpable tension after. Self-Care/Home Management Treatment Education Patient Education Body Mechanics,Pain Management,Posture Other Education -Edu for stretches and ex's in painfree range only and i/s in how to find the painfree range w/ improved self- awareness by pt. -Edu for diaphragmatic breathing for pain management via activation of the Parasympathetic NS. -Verbal i/s in muscle relaxation technique w/ Thank you, body mantra. PT-OP-T Assessment and Plan Start: 10/05/24 09:50 Freq: Status: Active Protocol: Document 10/09/24 16:19 NBM (Rec: 10/09/24 16:50 NBM Laptop) Physical Therapy Assessment Goals 4 Impairment NDI [facility] Goal (LTG) Pt will demonstrate improved NDI score from 26% to 5% or lower in order to improve function. LTG Duration 12 weeks 3 Impairment HEP Impairment Compliance of HEP 10/09/24: Discussion w/ pt re: barriers to HEP and how to incorporate into daily routine. Pt feels supported w / edu to stretch in pain-free range only. Short Term Goal (STG Pt will demonstrate knowledge and compliance of HEP ) without cueing in order to progress towards goals and maintain ROM/strength/posture after D/C from PT. STG Duration 6 weeks 2 Impairment Strength Impairment B UE Strength Service Order Expediter Goal (LTG) Pt will demonstrate improved B shoulder strength to at least 4+/5 to improve function LTG Duration 13 weeks 1 Impairment ROM Impairment Cervical ROM Service Order Expediter Goal (LTG) Pt will demonstrate R and L cervical rotation and R and L lateral flexion at 100% AROM without pain to improve function. LTG Duration 13 weeks Assessment Summary Assessment Serene presents with limited cervical rotation bilaterally which observably improves end of session, increasing her painfree range. Treatment focus on manual therapy to improve cervical tissue mobility with emphasis on breathwork for pain management via activation of the Parasympathetic NS, and on self-care and HEP review. Palpable tension improves with all muscles addressed. Pt requires instruction for performance in painfree range only and demonstrates improved self-awareness for performing HEP painfree.
--- NOTE | 2024-10-12 08:15 | PT.OTN ---
Current Diagnoses Cervicalgia (10/12/24) Physical Therapy Treatment Note PT-OP-A Visit Information Start: 10/05/24 09:50 Freq: Status: Active Protocol: Document 10/12/24 07:33 ROAD TRAFFIC CONTROLLER (Rec: 10/12/24 08:15 RO[address] TRAFFIC CONTROLLER Laptop) Out-Patient Physical Therapy Visit Information Visit Information Visit Type Treatment Note Visit Note shortened session d/t tardiness and pt requesting to leave early to check on dog at home Visit Start Time 07:36 Visit Stop Time 08:05 Visit Number 3 Number of BUCKLE STRINGER Visits 0 Evaluation Information Evaluation Date 10/05/24 Precautions Precautions N/A PT-OP-B Current Condition Start: 10/05/24 09:50 Freq: Status: Active Protocol: Document 10/05/24 09:50 [address] TRAFFIC CONTROLLER (Rec: 10/05/24 11:20 RO[address] TRAFFIC CONTROLLER Laptop) Current Condition History of Current Condition Onset Date ~1 year ago Current Complaints B neck decreased ROM and tightness and pain History of Current Pt presents to PT evaluation reporting onset of neck Condition pain and stiffness starting about a year ago without known cause and has progressively gotten worse. 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 Pt feels most limited during yoga classes, while driving and having to turn body instead of just neck to look side to side. Pt reports her PT friend has helped her one time with massage, posture education, and stretching and that helped a lot, especially of her SCM. Has been taking tumeric to reduce inflammation instead of ibuprofen. Goes to chiropractor 1x/month. 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 Pt also discloses that she believes in a holistic medicine and prefers a natural remedy approach to achieve wellness. Treatment Goals Patient/Caregiver For improved neck ROM and learning about my body Goals PT-OP-C Subjective Start: 10/05/24 09:50 Freq: Status: Active Protocol: Document 10/12/24 07:33 [address] TRAFFIC CONTROLLER (Rec: 10/12/24 08:15 RO[address] TRAFFIC CONTROLLER Laptop) OP-PT Subjective Patient Comments Patient Comments Pt reports she feels better but a little stiff this morning, 4/10 to B upper neck. Has been working on HEP in pain free movement, feels like they are helping but neuro condition dystonia is working against exercises/ stretches, reports will try to relax more this weekend. PT-OP-F Manual Assessment Start: 10/05/24 09:50 Freq: Status: Active Protocol: Document 10/05/24 09:[address] TRAFFIC CONTROLLER (Rec: 10/05/24 11:[address] TRAFFIC CONTROLLER Laptop) Manual Assessments Soft Tissue Assessment Soft Tissue Mobility Decreased soft tissue mobility to suboccipitals, upper Assessment traps, levator scaps, rhomboids, supraspinatus, SCM bilaterally but R impairment >L Joint Mobility Assessment Joint Mobility Decreased Post to Ant mobility at C5-C2 Assessment PT-OP-J Posture/Palpation/Skin Start: 10/05/24 09:50 Freq: Status: Active Protocol: Document 10/05/24 09:[address] TRAFFIC CONTROLLER (Rec: 10/05/24 11:[address] TRAFFIC CONTROLLER Laptop) Posture Evaluation Comments Posture Comments Sitting: forward head posture, slight B forward rounded GH R>L, R shoulder slightly higher than L PT-OP-K Range of Motion Start: 10/05/24 09:50 Freq: Status: Active Protocol: Document 10/05/24 09:[address] TRAFFIC CONTROLLER (Rec: 10/05/24 11:[address] TRAFFIC CONTROLLER Laptop) Cervical Spine Range of Motion Cervical Spine Percentage Flexion 100 Extension 75 Rotation Left 80 Rotation Right 90 Lateral Flexion Left 90 Lateral Flexion 75 Right ROM Limitations Soft Tissue Tightness Comments ext hinging at C6 Shoulder Goniometric Range of Motion Shoulder ROM Limitations Comments B shoulder flex/abd WNL R ER functional reach middle finger to T6 L ER functional reach middle finger to T4 PT-OP-M Strength Start: 10/05/24 09:50 Freq: Status: Active Protocol: Document 10/05/24 09:[address] TRAFFIC CONTROLLER (Rec: 10/05/24 11:[address] TRAFFIC CONTROLLER Laptop) Shoulder Strength Shoulder Manual Muscle Testing L Flexion 4+ Good+ Extension 5 Normal Abduction (C5) 4 Good External Rotation 4 Good Internal Rotation 4+ Good+ R Flexion 4+ Good+ Extension 5 Normal Abduction (C5) 4- Good- External Rotation 4 Good Internal Rotation 4- Good- PT-OP-Q Treatments Start: 10/05/24 09:50 Freq: Status: Active Protocol: Document 10/12/24 07:[address] TRAFFIC CONTROLLER (Rec: 10/12/24 08:15 [address] TRAFFIC CONTROLLER Laptop) Therapeutic Exercises Supine Exercises Chin Tucks Reps/Minutes 10x2 Comments cues for gentle pain free motion Scap Depression Supine Exercise Name 1. Scapular depression 2. Scap depress+Scap retraction Side bilateral Reps/Minutes x10 each Comments Combined movement added to HEP Scap Protraction Supine Exercise Name Serratus punches Side bilateral Resistance without weight, 2# dumbbell Reps/Minutes x10 each Comments Added to HEP Manual Therapy Treatment Consent Patient gave verbal Yes consent for manual treatment Soft Tissue Mobilization cervical Body Location B suboccipitals, R>L Mobilization Type Rolling,Sustained Pressure,Trigger Point Release Intensity/Depth Moderate Body Position Supine Comments LEs supported on bolster. towel over eyes. With active chin tucks PT-OP-T Assessment and Plan Start: 10/05/24 09:50 Freq: Status: Active Protocol: Document 10/12/24 07:[address] TRAFFIC CONTROLLER (Rec: 10/12/24 08:15 [address] TRAFFIC CONTROLLER Laptop) Physical Therapy Assessment Impairments Impairments Activity Tolerance,Functional Activities,Functional Mobility,Pain,Posture,ROM,Soft Tissue Mobility,Strength Goals 4 Impairment NDI Software Development Intern Goal (LTG) Pt will demonstrate improved NDI score from 26% to 5% or lower in order to improve function. LTG Duration 12 weeks 3 Impairment HEP Impairment Compliance of HEP 10/09/24: Discussion w/ pt re: barriers to HEP and how to incorporate into daily routine. Pt feels supported w / edu to stretch in pain-free range only. Short Term Goal (STG Pt will demonstrate knowledge and compliance of HEP ) without cueing in order to progress towards goals and maintain ROM/strength/posture after D/C from PT. STG Duration 6 weeks 2 Impairment Strength Impairment B UE Strength Intermediate Goal (LTG) Pt will demonstrate improved B shoulder strength to at least 4+/5 to improve function LTG Duration 13 weeks 1 Impairment ROM Impairment Cervical ROM Intermediate Goal (LTG) Pt will demonstrate R and L cervical rotation and R and L lateral flexion at 100% AROM without pain to improve function. LTG Duration 13 weeks Progress Towards Goals Progress Towards Progressing Toward Goals Goals Assessment Summary Assessment Pt with shortened session today but STM helped to reduce tightness to B suboccipitals. Added to HEP with handout today for scapular strengthening Physical Therapy Plan Frequency and Duration Frequency of 1-2x/wk Treatment Duration of 12 treatment (weeks) Plan of Care Start 10/05/24 Date Plan of Care End 12/28/24 Date Therapeutic Interventions Therapeutic Home Exercise Program,Joint Mobilizations,Manual Interventions Therapy,Patient/Caregiver Education,Soft Tissue Mobilization,Taping,Therapeutic Activities,Therapeutic Exercises Modalities Cold Pack/Ice Massage,Hot Packs,Iontophoresis, Ultrasound Next Visit Focus/Plan Next Note Type Treatment Note Next Visit Plan Review HEP, STM to sub occipitals, cervical muscles, and L rhomboids, assess TA activation, scapular stabilizing exercises, chin tucks
--- NOTE | 2024-10-19 17:06 | PT.OTN ---
Current Diagnoses Cervicalgia (10/19/24) Physical Therapy Treatment Note PT-OP-A Visit Information Start: 10/05/24 09:50 Freq: Status: Active Protocol: Document 10/19/24 16:50 NBM (Rec: 10/19/24 17:05 NBM Laptop) Out-Patient Physical Therapy Visit Information Visit Information Visit Type Treatment Note Visit Start Time 14:35 Visit Stop Time 15:25 Visit Number 5 Number of TRANSPORT NURSE Visits 1 Evaluation Information Evaluation Date 10/05/24 Precautions Precautions N/A PT-OP-B Current Condition Start: 10/05/24 09:50 Freq: Status: Active Protocol: Document 10/05/24 09:50 CENTER REP (Rec: 10/05/24 11:20 CENTER REP Laptop) Current Condition History of Current Condition Onset Date ~1 year ago Current Complaints B neck decreased ROM and tightness and pain History of Current Pt presents to PT evaluation reporting onset of neck Condition pain and stiffness starting about a year ago without known cause and has progressively gotten worse. 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 Pt feels most limited during yoga classes, while driving and having to turn body instead of just neck to look side to side. Pt reports her PT friend has helped her one time with massage, posture education, and stretching and that helped a lot, especially of her SCM. Has been taking tumeric to reduce inflammation instead of ibuprofen. Goes to chiropractor 1x/month. 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 Pt also discloses that she believes in a holistic medicine and prefers a natural remedy approach to achieve wellness. Treatment Goals Patient/Caregiver For improved neck ROM and learning about my body Goals PT-OP-C Subjective Start: 10/05/24 09:50 Freq: Status: Active Protocol: Document 10/19/24 16:50 NBM (Rec: 10/19/24 17:05 NBM Laptop) OP-PT Subjective Patient Comments Patient Comments Serene reports she's been working on exercises at home in painfree range. Chin tucks are still painful. PT-OP-F Manual Assessment Start: 10/05/24 09:50 Freq: Status: Active Protocol: Document 10/05/24 09:50 CENTER REP (Rec: 10/05/24 11:20 CENTER REP Laptop) Manual Assessments Soft Tissue Assessment Soft Tissue Mobility Decreased soft tissue mobility to suboccipitals, upper Assessment traps, levator scaps, rhomboids, supraspinatus, SCM bilaterally but R impairment >L Joint Mobility Assessment Joint Mobility Decreased Post to Ant mobility at C5-C2 Assessment PT-OP-J Posture/Palpation/Skin Start: 10/05/24 09:50 Freq: Status: Active Protocol: Document 10/05/24 09:50 CENTER REP (Rec: 10/05/24 11:20 CENTER REP Laptop) Posture Evaluation Comments Posture Comments Sitting: forward head posture, slight B forward rounded GH R>L, R shoulder slightly higher than L PT-OP-K Range of Motion Start: 10/05/24 09:50 Freq: Status: Active Protocol: Document 10/05/24 09:50 CENTER REP (Rec: 10/05/24 11:20 CENTER REP Laptop) Cervical Spine Range of Motion Cervical Spine Percentage Flexion 100 Extension 75 Rotation Left 80 Rotation Right 90 Lateral Flexion Left 90 Lateral Flexion 75 Right ROM Limitations Soft Tissue Tightness Comments ext hinging at C6 Shoulder Goniometric Range of Motion Shoulder ROM Limitations Comments B shoulder flex/abd WNL R ER functional reach middle finger to T6 L ER functional reach middle finger to T4 PT-OP-M Strength Start: 10/05/24 09:50 Freq: Status: Active Protocol: Document 10/05/24 09:50 CENTER REP (Rec: 10/05/24 11:20 CENTER REP Laptop) Shoulder Strength Shoulder Manual Muscle Testing L Flexion 4+ Good+ Extension 5 Normal Abduction (C5) 4 Good External Rotation 4 Good Internal Rotation 4+ Good+ R Flexion 4+ Good+ Extension 5 Normal Abduction (C5) 4- Good- External Rotation 4 Good Internal Rotation 4- Good- PT-OP-Q Treatments Start: 10/05/24 09:50 Freq: Status: Active Protocol: Document 10/19/24 16:50 NBM (Rec: 10/19/24 17:05 NBM Laptop) Therapeutic Exercises Supine Exercises Chin Tucks Reps/Minutes 5x2 SH Comments cues for gentle pain free motion Sitting Exercises Chin Tuck Sitting Exercise HEP review Name Reps/Minutes x10 Comments cues gentle painfree range Standing Exercises Shoulder IR Standing Exercise HEP review Name Side bilateral Resistance L1 TB Reps/Minutes x15 Comments cues for chin tuck, scapular setting, breathwork Shoulder ER Standing Exercise HEP review Name Side bilateral Resistance L1 TB Reps/Minutes x15 Comments cues for chin tuck, scapular setting, breathwork Manual Therapy Treatment Consent Patient gave verbal Yes consent for manual treatment Soft Tissue Mobilization cervical Body Location R>L LS, paraspinals, suboccipitals, SCM; L>R UT; L Middle Trap, Rhomboids Mobilization Type Cross-Friction,Rolling,Sustained Pressure,Trigger Point Release,Other Intensity/Depth Superficial, Moderate Body Position Hooklying Comments LEs supported on bolster. w/ breathwork. Manual pin and stretch to B UT, LS, 30s ea - decreased palpable tension after. PT-OP-T Assessment and Plan Start: 10/05/24 09:50 Freq: Status: Active Protocol: Document 10/19/24 16:50 NBM (Rec: 10/19/24 17:05 NBM Laptop) Physical Therapy Assessment Goals 4 Impairment NDI Fpc Goal (LTG) Pt will demonstrate improved NDI score from 26% to 5% or lower in order to improve function. LTG Duration 12 weeks 3 Impairment HEP Impairment Compliance of HEP 10/09/24: Discussion w/ pt re: barriers to HEP and how to incorporate into daily routine. Pt feels supported w / edu to stretch in pain-free range only. 10/19/24: Pt reports compliance w/ HEP in pain-free range. Short Term Goal (STG Pt will demonstrate knowledge and compliance of HEP ) without cueing in order to progress towards goals and maintain ROM/strength/posture after D/C from PT. STG Duration 6 weeks 2 Impairment Strength Impairment B UE Strength Toll Collector Supervisor Goal (LTG) Pt will demonstrate improved B shoulder strength to at least 4+/5 to improve function LTG Duration 13 weeks 1 Impairment ROM Impairment Cervical ROM Toll Collector Supervisor Goal (LTG) Pt will demonstrate R and L cervical rotation and R and L lateral flexion at 100% AROM without pain to improve function. LTG Duration 13 weeks Assessment Summary Assessment Serene presents with B cervical rotation limitations which visually improves approximately 15 degrees R and 10 deg L in painfree range. She requires cues for painfree range with chin retraction and demonstrates improved self-awareness for postural alignment, muscle tension and breathwork performing Lvl 1 resisted IR/ER bilaterally. Palpable tension to R cervical paraspinals and L Upper trapezius m. improves with manual therapy.
--- NOTE | 2024-10-23 19:16 | PT.OTN ---
Current Diagnoses Cervicalgia (10/23/24) Physical Therapy Treatment Note PT-OP-A Visit Information Start: 10/05/24 09:50 Freq: Status: Active Protocol: Document 10/23/24 13:09 RN TRAVELING (Rec: 10/23/24 13:50 RN TRAVELING Laptop) Out-Patient Physical Therapy Visit Information Visit Information Visit Type Treatment Note Visit Start Time 13:05 Visit Stop Time 13:49 Visit Number 6 Number of REMOTE PILOT OPERATOR Visits 0 Evaluation Information Evaluation Date 10/05/24 Precautions Precautions N/A PT-OP-B Current Condition Start: 10/05/24 09:50 Freq: Status: Active Protocol: Document 10/05/24 09:50 RN TRAVELING (Rec: 10/05/24 11:20 RN TRAVELING Laptop) Current Condition History of Current Condition Onset Date ~1 year ago Current Complaints B neck decreased ROM and tightness and pain History of Current Pt presents to PT evaluation reporting onset of neck Condition pain and stiffness starting about a year ago without known cause and has progressively gotten worse. 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 Pt feels most limited during yoga classes, while driving and having to turn body instead of just neck to look side to side. Pt reports her PT friend has helped her one time with massage, posture education, and stretching and that helped a lot, especially of her SCM. Has been taking tumeric to reduce inflammation instead of ibuprofen. Goes to chiropractor 1x/month. 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 Pt also discloses that she believes in a holistic medicine and prefers a natural remedy approach to achieve wellness. Treatment Goals Patient/Caregiver For improved neck ROM and learning about my body Goals PT-OP-C Subjective Start: 10/05/24 09:50 Freq: Status: Active Protocol: Document 10/23/24 13:09 RN TRAVELING (Rec: 10/23/24 13:52 RN TRAVELING Laptop) OP-PT Subjective Patient Comments Patient Comments Pt reports 6-7/10 pain to B neck. She feels better after session but unable to maintain decreased pain. Patient Reported Same Progress PT-OP-F Manual Assessment Start: 10/05/24 09:50 Freq: Status: Active Protocol: Document 10/05/24 09:50 RN TRAVELING (Rec: 10/05/24 11:20 RN TRAVELING Laptop) Manual Assessments Soft Tissue Assessment Soft Tissue Mobility Decreased soft tissue mobility to suboccipitals, upper Assessment traps, levator scaps, rhomboids, supraspinatus, SCM bilaterally but R impairment >L Joint Mobility Assessment Joint Mobility Decreased Post to Ant mobility at C5-C2 Assessment PT-OP-J Posture/Palpation/Skin Start: 10/05/24 09:50 Freq: Status: Active Protocol: Document 10/05/24 09:50 RN TRAVELING (Rec: 10/05/24 11:20 RN TRAVELING Laptop) Posture Evaluation Comments Posture Comments Sitting: forward head posture, slight B forward rounded GH R>L, R shoulder slightly higher than L PT-OP-K Range of Motion Start: 10/05/24 09:50 Freq: Status: Active Protocol: Document 10/05/24 09:50 RN TRAVELING (Rec: 10/05/24 11:20 RN TRAVELING Laptop) Cervical Spine Range of Motion Cervical Spine Percentage Flexion 100 Extension 75 Rotation Left 80 Rotation Right 90 Lateral Flexion Left 90 Lateral Flexion 75 Right ROM Limitations Soft Tissue Tightness Comments ext hinging at C6 Shoulder Goniometric Range of Motion Shoulder ROM Limitations Comments B shoulder flex/abd WNL R ER functional reach middle finger to T6 L ER functional reach middle finger to T4 PT-OP-M Strength Start: 10/05/24 09:50 Freq: Status: Active Protocol: Document 10/05/24 09:50 RN TRAVELING (Rec: 10/05/24 11:20 RN TRAVELING Laptop) Shoulder Strength Shoulder Manual Muscle Testing L Flexion 4+ Good+ Extension 5 Normal Abduction (C5) 4 Good External Rotation 4 Good Internal Rotation 4+ Good+ R Flexion 4+ Good+ Extension 5 Normal Abduction (C5) 4- Good- External Rotation 4 Good Internal Rotation 4- Good- PT-OP-Q Treatments Start: 10/05/24 09:50 Freq: Status: Active Protocol: Document 10/23/24 13:09 RN TRAVELING (Rec: 10/23/24 13:50 RN TRAVELING Laptop) Therapeutic Exercises Supine Exercises Chin Tucks Supine Exercise Name after STM Reps/Minutes x10 Comments cues for gentle pain free motion Scap Depression Supine Exercise Name after STM, with retraction Reps/Minutes x10 Comments cues for pain free motion Manual Therapy Treatment Consent Patient gave verbal Yes consent for manual treatment Soft Tissue Mobilization Edu on self STM Comments Recommended pt to use theracane for self trigger point release and pt trialed for ~3 mins to cervical muscles with success cervical Body Location suboccipitals R>L, SCM L>R, B cervical paraspinals, B UT Mobilization Type Cross-Friction,Rolling,Sustained Pressure,Trigger Point Release,Other Intensity/Depth Superficial, Moderate Body Position Hooklying Comments LEs supported on bolster. w/ breathwork. Manual pin and stretch to B UT, 30s ea - decreased palpable tension after. PT-OP-T Assessment and Plan Start: 10/05/24 09:50 Freq: Status: Active Protocol: Document 10/23/24 13:09 RN TRAVELING (Rec: 10/23/24 13:50 RN TRAVELING Laptop) Physical Therapy Assessment Goals 4 Impairment NDI Scale Model Maker Goal (LTG) Pt will demonstrate improved NDI score from 26% to 5% or lower in order to improve function. LTG Duration 12 weeks 3 Impairment HEP Impairment Compliance of HEP 10/09/24: Discussion w/ pt re: barriers to HEP and how to incorporate into daily routine. Pt feels supported w / edu to stretch in pain-free range only. 10/19/24: Pt reports compliance w/ HEP in pain-free range. Short Term Goal (STG Pt will demonstrate knowledge and compliance of HEP ) without cueing in order to progress towards goals and maintain ROM/strength/posture after D/C from PT. STG Duration 6 weeks 2 Impairment Strength Impairment B UE Strength Scale Model Maker Goal (LTG) Pt will demonstrate improved B shoulder strength to at least 4+/5 to improve function LTG Duration 13 weeks 1 Impairment ROM Impairment Cervical ROM Mcfp Goal (LTG) Pt will demonstrate R and L cervical rotation and R and L lateral flexion at 100% AROM without pain to improve function. LTG Duration 13 weeks Progress Towards Goals Progress Towards Progressing Toward Goals Goals Assessment Summary Assessment Focus this session was on STM to cervical and shoulder muscles with emphasis on B SCMs. Pt with improved AROM R rotation from 27 degrees to 35 degrees and L rotation from 32 degrees to 36 degrees after STM. Physical Therapy Plan Frequency and Duration Frequency of 1-2x/wk Treatment Duration of 12 treatment (weeks) Plan of Care Start 10/05/24 Date Plan of Care End 12/28/24 Date Therapeutic Interventions Therapeutic Home Exercise Program,Joint Mobilizations,Manual Interventions Therapy,Patient/Caregiver Education,Soft Tissue Mobilization,Taping,Therapeutic Activities,Therapeutic Exercises Modalities Cold Pack/Ice Massage,Hot Packs,Iontophoresis, Ultrasound Next Visit Focus/Plan Next Note Type Treatment Note Next Visit Plan SCM stretch with handout, progress TA exercises, scapular stabilizing exercises
--- NOTE | 2024-10-31 16:53 | PT.OTN ---
Physical Therapy Treatment Note PT-OP-A Visit Information Start: 10/05/24 09:50 Freq: Status: Active Protocol: Document 10/31/24 13:59 NBM (Rec: 10/31/24 14:39 NBM Laptop) Out-Patient Physical Therapy Visit Information Visit Information Visit Type Treatment Note Visit Start Time 13:53 Visit Stop Time 14:33 Visit Number 7 Number of CLERICAL COORDINATOR Visits 1 Evaluation Information Evaluation Date 10/05/24 Precautions Precautions N/A PT-OP-B Current Condition Start: 10/05/24 09:50 Freq: Status: Active Protocol: Document 10/05/24 09:50 COMPLIANCE ANALYST (Rec: 10/05/24 11:20 COMPLIANCE ANALYST Laptop) Current Condition History of Current Condition Onset Date ~1 year ago Current Complaints B neck decreased ROM and tightness and pain History of Current Pt presents to PT evaluation reporting onset of neck Condition pain and stiffness starting about a year ago without known cause and has progressively gotten worse. 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 Pt feels most limited during yoga classes, while driving and having to turn body instead of just neck to look side to side. Pt reports her PT friend has helped her one time with massage, posture education, and stretching and that helped a lot, especially of her SCM. Has been taking tumeric to reduce inflammation instead of ibuprofen. Goes to chiropractor 1x/month. 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 Pt also discloses that she believes in a holistic medicine and prefers a natural remedy approach to achieve wellness. Treatment Goals Patient/Caregiver For improved neck ROM and learning about my body Goals PT-OP-C Subjective Start: 10/05/24 09:50 Freq: Status: Active Protocol: Document 10/31/24 13:59 NBM (Rec: 10/31/24 14:39 NBM Laptop) OP-PT Subjective Patient Comments Patient Comments Serene reports 7-8/10 pain in shoulders going up into base of skull, and R>L Trapezius soreness. Driving is difficult because it hurts to turn her head too far. PT-OP-Q Treatments Start: 10/05/24 09:50 Freq: Status: Active Protocol: Document 10/31/24 13:59 NBM (Rec: 10/31/24 14:39 NBM Laptop) Therapeutic Exercises Supine Exercises Chin Tucks Supine Exercise Name before STM Reps/Minutes x10 Comments cues for gentle pain free motion Manual Therapy Treatment Consent Patient gave verbal Yes consent for manual treatment Soft Tissue Mobilization cervical Body Location suboccipitals, SCM L>R, B cervical paraspinals, R>L UT, LS Mobilization Type Cross-Friction,Rolling,Sustained Pressure,Trigger Point Release,Other Intensity/Depth Superficial, Moderate Body Position Hooklying Comments LEs supported on bolster. w/ breathwork. Manual pin and stretch to B UT, LS 30s ea - decreased palpable tension after. PT-OP-T Assessment and Plan Start: 10/05/24 09:50 Freq: Status: Active Protocol: Document 10/31/24 13:59 NBM (Rec: 10/31/24 14:39 NBM Laptop) Physical Therapy Assessment Goals 4 Impairment NDI Halfway Goal (LTG) Pt will demonstrate improved NDI score from 26% to 5% or lower in order to improve function. LTG Duration 12 weeks 3 Impairment HEP Impairment Compliance of HEP 10/09/24: Discussion w/ pt re: barriers to HEP and how to incorporate into daily routine. Pt feels supported w / edu to stretch in pain-free range only. 10/19/24: Pt reports compliance w/ HEP in pain-free range. Short Term Goal (STG Pt will demonstrate knowledge and compliance of HEP ) without cueing in order to progress towards goals and maintain ROM/strength/posture after D/C from PT. STG Duration 6 weeks 2 Impairment Strength Impairment B UE Strength Halfway Goal (LTG) Pt will demonstrate improved B shoulder strength to at least 4+/5 to improve function LTG Duration 13 weeks 1 Impairment ROM Impairment Cervical ROM Tissue Recovery Technician Goal (LTG) Pt will demonstrate R and L cervical rotation and R and L lateral flexion at 100% AROM without pain to improve function. LTG Duration 13 weeks Assessment Summary Assessment Pt's pain improves from 7-8/10 start of session to 5-6/ 10 end of session. Treatment focus on manual therapy for pain management. Emphasis on painfree range of motion with gentle chin tucks and HEP with breathwork. Physical Therapy Plan Frequency and Duration Frequency of 1-2x/wk Treatment Duration of 12 treatment (weeks) Plan of Care Start 10/05/24 Date Plan of Care End 12/28/24 Date Therapeutic Interventions Therapeutic Home Exercise Program,Joint Mobilizations,Manual Interventions Therapy,Patient/Caregiver Education,Soft Tissue Mobilization,Taping,Therapeutic Activities,Therapeutic Exercises Modalities Cold Pack/Ice Massage,Hot Packs,Iontophoresis, Ultrasound Next Visit Focus/Plan Next Note Type Treatment Note Next Visit Plan SCM stretch with handout, progress TA exercises, scapular stabilizing exercises
--- NOTE | 2024-11-02 16:37 | PT.OTN ---
Current Diagnoses Cervicalgia (11/02/24) Physical Therapy Treatment Note PT-OP-A Visit Information Start: 10/05/24 09:50 Freq: Status: Active Protocol: Document 11/02/24 14:26 NBM (Rec: 11/02/24 16:36 NBM Laptop) Out-Patient Physical Therapy Visit Information Visit Information Visit Type Treatment Note Visit Start Time 13:55 Visit Stop Time 14:35 Visit Number 8 Number of METAL MACHINIST Visits 2 Evaluation Information Evaluation Date 10/05/24 Precautions Precautions N/A PT-OP-B Current Condition Start: 10/05/24 09:50 Freq: Status: Active Protocol: Document 10/05/24 09:50 MANAGER HOUSE (Rec: 10/05/24 11:20 MANAGER HOUSE Laptop) Current Condition History of Current Condition Onset Date ~1 year ago Current Complaints B neck decreased ROM and tightness and pain History of Current Pt presents to PT evaluation reporting onset of neck Condition pain and stiffness starting about a year ago without known cause and has progressively gotten worse. 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 Pt feels most limited during yoga classes, while driving and having to turn body instead of just neck to look side to side. Pt reports her PT friend has helped her one time with massage, posture education, and stretching and that helped a lot, especially of her SCM. Has been taking tumeric to reduce inflammation instead of ibuprofen. Goes to chiropractor 1x/month. 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 Pt also discloses that she believes in a holistic medicine and prefers a natural remedy approach to achieve wellness. Treatment Goals Patient/Caregiver For improved neck ROM and learning about my body Goals PT-OP-C Subjective Start: 10/05/24 09:50 Freq: Status: Active Protocol: Document 11/02/24 14:26 NBM (Rec: 11/02/24 16:36 NBM Laptop) OP-PT Subjective Patient Comments Patient Comments Serene reports neck pain and motion are continuing to improve; checking blind spot with driving is getting easier. Her Right trapezius and L shoulder blade have tight spots. She just got a theracane and brings it for instruction. PT-OP-F Manual Assessment Start: 10/05/24 09:50 Freq: Status: Active Protocol: Document 10/05/24 09:50 MANAGER HOUSE (Rec: 10/05/24 11:20 MANAGER HOUSE Laptop) Manual Assessments Soft Tissue Assessment Soft Tissue Mobility Decreased soft tissue mobility to suboccipitals, upper Assessment traps, levator scaps, rhomboids, supraspinatus, SCM bilaterally but R impairment >L Joint Mobility Assessment Joint Mobility Decreased Post to Ant mobility at C5-C2 Assessment PT-OP-J Posture/Palpation/Skin Start: 10/05/24 09:50 Freq: Status: Active Protocol: Document 10/05/24 09:50 MANAGER HOUSE (Rec: 10/05/24 11:20 MANAGER HOUSE Laptop) Posture Evaluation Comments Posture Comments Sitting: forward head posture, slight B forward rounded GH R>L, R shoulder slightly higher than L PT-OP-K Range of Motion Start: 10/05/24 09:50 Freq: Status: Active Protocol: Document 10/05/24 09:50 MANAGER HOUSE (Rec: 10/05/24 11:20 MANAGER HOUSE Laptop) Cervical Spine Range of Motion Cervical Spine Percentage Flexion 100 Extension 75 Rotation Left 80 Rotation Right 90 Lateral Flexion Left 90 Lateral Flexion 75 Right ROM Limitations Soft Tissue Tightness Comments ext hinging at C6 Shoulder Goniometric Range of Motion Shoulder ROM Limitations Comments B shoulder flex/abd WNL R ER functional reach middle finger to T6 L ER functional reach middle finger to T4 PT-OP-M Strength Start: 10/05/24 09:50 Freq: Status: Active Protocol: Document 10/05/24 09:50 MANAGER HOUSE (Rec: 10/05/24 11:20 MANAGER HOUSE Laptop) Shoulder Strength Shoulder Manual Muscle Testing L Flexion 4+ Good+ Extension 5 Normal Abduction (C5) 4 Good External Rotation 4 Good Internal Rotation 4+ Good+ R Flexion 4+ Good+ Extension 5 Normal Abduction (C5) 4- Good- External Rotation 4 Good Internal Rotation 4- Good- PT-OP-Q Treatments Start: 10/05/24 09:50 Freq: Status: Active Protocol: Document 11/02/24 14:26 NBM (Rec: 11/02/24 16:36 NBM Laptop) Therapeutic Exercises Supine Exercises Core Supine Exercise Name added to HEP: 1. TrA activation 2. TrA w/ PPT 3. alt BKFO Equipment Used self-monitoring TrA medial to ASIS, tactile cues for PPT Comments TrA challenged with BKFO, LBP resolves w/ cues for smaller range. Sitting Exercises Chin Tuck Sitting Exercise HEP review Name Reps/Minutes x5 Manual Therapy Treatment Consent Patient gave verbal Yes consent for manual treatment Soft Tissue Mobilization Edu on self STM Body Location I/s in use of pt's theracane for self-STM Mobilization Type Instrument Assisted Body Position Sitting Comments I/s pt to use theracane for self trigger point release to cervical muscles, B UT, medial border of scapulae and lumbar paraspinals w/ cues for breathwork. Manual Techniques stretch Comments manual stretch to L hamstrings m. following cramping during PPT in hooklying. Resolves w/ STM, pt given water and PPT resumed with cues for foot placement closer to buttocks. PT-OP-T Assessment and Plan Start: 10/05/24 09:50 Freq: Status: Active Protocol: Document 11/02/24 14:26 NBM (Rec: 11/02/24 16:36 NBM Laptop) Physical Therapy Assessment Goals 4 Impairment NDI Mcfp Goal (LTG) Pt will demonstrate improved NDI score from 26% to 5% or lower in order to improve function. LTG Duration 12 weeks 3 Impairment HEP Impairment Compliance of HEP 10/09/24: Discussion w/ pt re: barriers to HEP and how to incorporate into daily routine. Pt feels supported w / edu to stretch in pain-free range only. 10/19/24: Pt reports compliance w/ HEP in pain-free range. Short Term Goal (STG Pt will demonstrate knowledge and compliance of HEP ) without cueing in order to progress towards goals and maintain ROM/strength/posture after D/C from PT. STG Duration 6 weeks 2 Impairment Strength Impairment B UE Strength Mcfp Goal (LTG) Pt will demonstrate improved B shoulder strength to at least 4+/5 to improve function LTG Duration 13 weeks 1 Impairment ROM Impairment Cervical ROM Mcfp Goal (LTG) Pt will demonstrate R and L cervical rotation and R and L lateral flexion at 100% AROM without pain to improve function. LTG Duration 13 weeks Assessment Summary Assessment Serene presents with observably improved cervical rotation bilaterally, R>L tightness. Pt instructed in self-STM trigger point release with own theracane. Transverse abdominis exercises progressed w/ education to pt using visual aids for breathwork and interrelationship of TrA with diaphragm and pelvic floor muscles. Pt is challenged to perform PPT without breath holding and reminded of adequate hydration following a L hamstring m. cramp during supine PPT in hooklying and given water. Pt demos improved self- awareness of supine TrA activation w/ PPT and Bent Knee Fallouts following cueing and repetition - added to HEP. Physical Therapy Plan Frequency and Duration Frequency of 1-2x/wk Treatment Duration of 12 treatment (weeks) Plan of Care Start 10/05/24 Date Plan of Care End 12/28/24 Date Therapeutic Interventions Therapeutic Home Exercise Program,Joint Mobilizations,Manual Interventions Therapy,Patient/Caregiver Education,Soft Tissue Mobilization,Taping,Therapeutic Activities,Therapeutic Exercises Modalities Cold Pack/Ice Massage,Hot Packs,Iontophoresis, Ultrasound Next Visit Focus/Plan Next Note Type Treatment Note Next Visit Plan SCM stretch with handout, progress TA exercises, scapular stabilizing exercises
--- NOTE | 2024-11-08 20:36 | PT.OTN ---
Current Diagnoses Cervicalgia (11/08/24) Physical Therapy Treatment Note PT-OP-A Visit Information Start: 10/05/24 09:50 Freq: Status: Active Protocol: Document 11/08/24 13:09 MOTORBOAT MECHANIC INBOARD/OUTBOARD (Rec: 11/08/24 13:52 MOTORBOAT MECHANIC INBOARD/OUTBOARD Laptop) Out-Patient Physical Therapy Visit Information Visit Information Visit Type Progress Note Visit Note shortened session d/t pt tardiness Visit Start Time 13:08 Visit Stop Time 13:50 Visit Number 9 Number of VP SCIENTIFIC Visits 0 Evaluation Information Evaluation Date 10/05/24 PT-OP-B Current Condition Start: 10/05/24 09:50 Freq: Status: Active Protocol: Document 10/05/24 09:50 MOTORBOAT MECHANIC INBOARD/OUTBOARD (Rec: 10/05/24 11:20 MOTORBOAT MECHANIC INBOARD/OUTBOARD Laptop) Current Condition History of Current Condition Onset Date ~1 year ago Current Complaints B neck decreased ROM and tightness and pain History of Current Pt presents to PT evaluation reporting onset of neck Condition pain and stiffness starting about a year ago without known cause and has progressively gotten worse. 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 Pt feels most limited during yoga classes, while driving and having to turn body instead of just neck to look side to side. Pt reports her PT friend has helped her one time with massage, posture education, and stretching and that helped a lot, especially of her SCM. Has been taking tumeric to reduce inflammation instead of ibuprofen. Goes to chiropractor 1x/month. 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 Pt also discloses that she believes in a holistic medicine and prefers a natural remedy approach to achieve wellness. Treatment Goals Patient/Caregiver For improved neck ROM and learning about my body Goals PT-OP-C Subjective Start: 10/05/24 09:50 Freq: Status: Active Protocol: Document 11/08/24 13:09 MOTORBOAT MECHANIC INBOARD/OUTBOARD (Rec: 11/08/24 13:52 MOTORBOAT MECHANIC INBOARD/OUTBOARD Laptop) OP-PT Subjective Patient Comments Patient Comments Pt reports she purchased a theracane and has been using it with better targeting at trigger points. Feels it is helping but could benefit from using it more. Current pain is 6/10 to B suboccipitals PT-OP-F Manual Assessment Start: 06/13/25 09:50 Freq: Status: Active Protocol: Document 10/05/24 09:50 MOTORBOAT MECHANIC INBOARD/OUTBOARD (Rec: 10/05/24 11:20 MOTORBOAT MECHANIC INBOARD/OUTBOARD Laptop) Manual Assessments Soft Tissue Assessment Soft Tissue Mobility Decreased soft tissue mobility to suboccipitals, upper Assessment traps, levator scaps, rhomboids, supraspinatus, SCM bilaterally but R impairment >L Joint Mobility Assessment Joint Mobility Decreased Post to Ant mobility at C5-C2 Assessment PT-OP-J Posture/Palpation/Skin Start: 10/05/24 09:50 Freq: Status: Active Protocol: Document 10/05/24 09:50 MOTORBOAT MECHANIC INBOARD/OUTBOARD (Rec: 10/05/24 11:20 MOTORBOAT MECHANIC INBOARD/OUTBOARD Laptop) Posture Evaluation Comments Posture Comments Sitting: forward head posture, slight B forward rounded GH R>L, R shoulder slightly higher than L PT-OP-K Range of Motion Start: 10/05/24 09:50 Freq: Status: Active Protocol: Document 11/08/24 13:09 MOTORBOAT MECHANIC INBOARD/OUTBOARD (Rec: 11/08/24 13:52 MOTORBOAT MECHANIC INBOARD/OUTBOARD Laptop) Cervical Spine Range of Motion Cervical Spine Active Degrees Rotation Left 40 Rotation Right 39 Lateral Flexion Left 33 Lateral Flexion 39 Right Percentage Flexion 100 Extension 75 Rotation Left 80 Rotation Right 90 Lateral Flexion Left 90 Lateral Flexion 75 Right ROM Limitations Soft Tissue Tightness Comments ext hinging at C6 PT-OP-M Strength Start: 10/05/24 09:50 Freq: Status: Active Protocol: Document 11/08/24 13:09 MOTORBOAT MECHANIC INBOARD/OUTBOARD (Rec: 11/08/24 13:52 MOTORBOAT MECHANIC INBOARD/OUTBOARD Laptop) Shoulder Strength Shoulder Manual Muscle Testing L Flexion 4+ Good+ Extension 5 Normal Abduction (C5) 4+ Good+ External Rotation 4+ Good+ Internal Rotation 5 Normal R Flexion 4+ Good+ Extension 5 Normal Abduction (C5) 5 Normal External Rotation 4 Good Internal Rotation 4+ Good+ PT-OP-Q Treatments Start: 10/05/24 09:50 Freq: Status: Active Protocol: Document 11/02/24 14:26 NBM (Rec: 11/02/24 16:36 NBM Laptop) Therapeutic Exercises Supine Exercises Core Supine Exercise Name added to HEP: 1. TrA activation 2. TrA w/ PPT 3. alt BKFO Equipment Used self-monitoring TrA medial to ASIS, tactile cues for PPT Comments TrA challenged with BKFO, LBP resolves w/ cues for smaller range. Sitting Exercises Chin Tuck Sitting Exercise HEP review Name Reps/Minutes x5 Manual Therapy Treatment Consent Patient gave verbal Yes consent for manual treatment Soft Tissue Mobilization Edu on self STM Body Location I/s in use of pt's theracane for self-STM Mobilization Type Instrument Assisted Body Position Sitting Comments I/s pt to use theracane for self trigger point release to cervical muscles, B UT, medial border of scapulae and lumbar paraspinals w/ cues for breathwork. Manual Techniques stretch Comments manual stretch to L hamstrings m. following cramping during PPT in hooklying. Resolves w/ STM, pt given water and PPT resumed with cues for foot placement closer to buttocks. PT-OP-T Assessment and Plan Start: 10/05/24 09:50 Freq: Status: Active Protocol: Document 11/08/24 13:09 MOTORBOAT MECHANIC INBOARD/OUTBOARD (Rec: 11/08/24 13:52 MOTORBOAT MECHANIC INBOARD/OUTBOARD Laptop) Physical Therapy Assessment Goals 4 Impairment NDI Fdc Goal (LTG) Pt will demonstrate improved NDI score from 26% to 5% or lower in order to improve function. 11/08: Unable to test d/t pt not finishing full NDI LTG Duration 12 weeks 3 Impairment HEP Impairment Compliance of HEP 10/09/24: Discussion w/ pt re: barriers to HEP and how to incorporate into daily routine. Pt feels supported w / edu to stretch in pain-free range only. 10/19/24: Pt reports compliance w/ HEP in pain-free range. Short Term Goal (STG Pt will demonstrate knowledge and compliance of HEP ) without cueing in order to progress towards goals and maintain ROM/strength/posture after D/C from PT. 11/08: MET, pt reports and demonstrates good knowledge of HEP without questions or cueing. Pt reports is able to perform at least 1x/day 5 days/wk for the past few weeks but personal goal is 1x/day 7 days/wk. STG Duration 6 weeks MET 2 Impairment Strength Impairment B UE Strength Medical Fee Clerk Goal (LTG) Pt will demonstrate improved B shoulder strength to at least 4+/5 to improve function. 11/08: Progressing, all 4+ or 5/5 except for R ER at 4/5 . LTG Duration 12 weeks 1 Impairment ROM Impairment Cervical ROM Medical Fee Clerk Goal (LTG) Pt will demonstrate R and L cervical rotation and R and L lateral flexion at 100% AROM without pain to improve function. 11/08: Progressing, L rotation 40 degrees, R rotation 39 degrees; L lateral flexion 33 degrees, R lateral flexion 39 degrees. Norms: Rotation 70 degrees, Lateral flex 45 degrees LTG Duration 12 weeks Assessment Summary Assessment Pt demonstrates progress towards goals meeting HEP goal , demonstrating improvement in all muscle groups of B shoulder strength to meet goal except for R ER, and is demonstrating progress in cervical rotation and lateral flex (measuring scale changed from percentage to degrees d/t subjective nature) however still demonstrates limitations. Pt continues to require skilled PT intervention to meet all goals. Physical Therapy Plan Frequency and Duration Frequency of 1-2x/wk Treatment Duration of 12 treatment (weeks) Plan of Care Start 10/05/24 Date Plan of Care End 12/28/24 Date Therapeutic Interventions Therapeutic Home Exercise Program,Joint Mobilizations,Manual Interventions Therapy,Patient/Caregiver Education,Soft Tissue Mobilization,Taping,Therapeutic Activities,Therapeutic Exercises Modalities Cold Pack/Ice Massage,Hot Packs,Iontophoresis, Ultrasound Next Visit Focus/Plan Next Note Type Treatment Note Next Visit Plan R shoulder ER, SCM stretching/STM, B upper trap STM, progress TA exercises
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
== END 2024-11-27 17:01 | disposition home or self-care (01) ==
LOC: PHYS 14:30
PROVIDERS: Family Provider Registered Nurse Diabetes Educator; PCP Registered Nurse Diabetes Educator; Referring Provider Registered Nurse Diabetes Educator; Visit Provider Registered Nurse Diabetes Educator
DX: M54.2 Cervicalgia (principal)
CPT/HCPCS: 97110; 97140; 97162; 97535